=== PATIENT | female | born 1965 | race African-American/Black ===

== ENCOUNTER → 2017-01-07 | Outpatient (CLI) | payer MEDICARE, MEDICAID | LOC: RAD 13:06 | PROVIDERS: ATTEND Internal Medicine | DX: R09.1 Pleurisy (principal) | CPT/HCPCS: 71275; 82565 ==

== ENCOUNTER 2017-01-10 11:17 | Emergency (ER) | payer MEDICARE, MEDICAID ==
[2017-01-10] MEDS ORDERED: NORMAL SALINE 1000 ML 1,000 ML IV ONE (12:19)
--- NOTE | 2017-01-10 12:19 | ER Document Report ---
ED Medical Screen (RME) - General Chief Complaint: Chest Pain Stated Complaint: CHEST PAIN TRAVEL OUTSIDE OF THE [place] IN LAST 30 DAYS: No - HPI Patient complains to provider of: chest pain abdominal pain Notes: 01/10/17 12:17 Patient coming in with chest pain abdominal pain ongoing for greater than a week has been seen by her PCP Dr. De La Torre and cardiology Dr. portillo with a recent CTA that was negative coming in for persistent symptoms. States mild nausea vomiting Patient in no distress Patient looks to have been diagnosed pleurisy in the past - Related Data Allergies/Adverse Reactions: oxycodone HCl [From Percocet] Allergy (Severe, Verified 01/10/17 11:32) n and v Past Medical History - Past Medical History Cardiac Medical History: Reports: Hx Hypercholesterolemia, Hx Hypertension - on meds Denies: Hx Coronary Artery Disease, Hx Heart Attack Pulmonary Medical History: Reports: Hx Asthma - last attack 09/23, Hx COPD - on meds, Hx Pneumonia - hx of Denies: Hx Bronchitis Neurological Medical History: Denies: Hx Cerebrovascular Accident, Hx Seizures Renal/ Medical History: Denies: Hx Peritoneal Dialysis GI Medical History: Reports: Hx Gastroesophageal Reflux Disease Musculoskeltal Medical History: Reports Hx Arthritis Past Surgical History: Reports: Hx Section, Hx Cholecystectomy, Hx Hysterectomy, Hx Orthopedic Surgery - neck fusion, Hx Tonsillectomy - Immunizations Hx Diphtheria, Pertussis, Tetanus Vaccination: Yes - 2005 Review of Systems - Review of Systems Cardiovascular: Chest pain Physical Exam - Vital signs Vitals: Temp Pulse Resp BP Pulse Ox 97.6 F 96 15 91/53 L 97 01/10/17 11:35 01/10/17 11:35 01/10/17 11:35 01/10/17 11:35 01/10/17 11:35 - Cardiovascular Rhythm: Regular Heart sounds: Normal auscultation Course - Re-evaluation Re-evalutation: 01/10/17 12:19 EKG reviewed no signs of STEMI or acute changes - Vital Signs Vital signs: Temp Pulse Resp BP Pulse Ox 97.6 F 96 15 91/53 L 97 01/10/17 11:35 01/10/17 11:35 01/10/17 11:35 01/10/17 11:35 01/10/17 11:35
[2017-01-10 12:48] LABS: ABSOLUTE EOSINOPHILS # (AUTO) 0.1 10^3/uL (0.0-0.6); ABSOLUTE LYMPHOCYTES (AUTO) 2.5 10^3/uL (0.5-4.7); ABSOLUTE MONOCYTES (AUTO) 0.4 10^3/uL (0.1-1.4); ABSOLUTE NEUT (AUTO) 2.8 10^3/uL (1.7-8.2); BASOPHILS % (AUTO) 0.7 % (0-2); HEMATOCRIT 37.5 % (36.0-47.0); HEMOGLOBIN 12.7 g/dL (12.0-15.5); HGB HCT DIFFERENCE 0.6; LYMPHOCYTES % (AUTO) 42.3 % (13-45); MEAN CORPUSCULAR HEMOGLOBIN 30.5 pg (27.0-33.4); MEAN CORPUSCULAR HGB CONC 33.8 g/dL (32.0-36.0); MEAN CORPUSCULAR VOLUME 90 fl (80-97); MONOCYTES % (AUTO) 7.2 % (3-13); RED BLOOD COUNT 4.15 10^6/uL (3.72-5.28); SEGMENTED NEUTROPHILS % (AUTO) 47.8 % (42-78); WHITE BLOOD COUNT 5.9 10^3/uL (4.0-10.5)
--- NOTE | 2017-01-10 13:21 | ER Document Report ---
ED Cardiac - General Chief Complaint: Chest Pain Stated Complaint: CHEST PAIN Mode of Arrival: Ambulatory Information source: Patient Notes: Patient reports chest pain and upper back pain daily for the past year. Patient states she has seen her security infrastructure engineer, primary doctor as well as GI specialist for this issue in the past. Patient recently had a CTA on 2016 that was negative for any PE but did show stable scarring from her previous ARDS. Patient reports that over the past 3 weeks that she will have upper abdominal pain after eating and will occasionally feel lightheaded and get sweaty. Patient reports decreased appetite. Patient denies any change in her symptoms today but she feels that something is wrong. Patient reports that she saw her security infrastructure engineer physician's personal assistant 2 days ago so that she can get set up for a heart catheterization. Patient reports that she feels like her heart races at home, she states that when he races it is in the 90s. Patient states that typically her heart rate does not get that fast. TRAVEL OUTSIDE OF THE [place] IN LAST 30 DAYS: No - HPI Patient complains to provider of: Chest pain. denies: Shortness of breath Chest pain location: Substernal Quality of pain: denies: Tingling Pain level currently: 4 Cardiac risk factors: Hypertension, Dyslipidemia. denies: Smoker Associated symptoms: Back pain, Diaphoresis, Lightheaded. denies: Dizziness Exacerbated by: Other - Food Worsens abdominal pain Similar symptoms previously: Yes Recently seen / treated by doctor: Yes - Related Data Allergies/Adverse Reactions: oxycodone HCl [From Percocet] Allergy (Severe, Verified 01/10/17 11:32) n and v Past Medical History - General Information source: Patient - Social History Smoking Status: Never Smoker Frequency of alcohol use: None Drug Abuse: None Occupation: none Lives with: Family Family History: Reviewed & Not Pertinent Patient has suicidal ideation: No Patient has homicidal ideation: No - Past Medical History Cardiac Medical History: Reports: Hx Hypercholesterolemia, Hx Hypertension - on meds Denies: Hx Coronary Artery Disease, Hx Heart Attack Pulmonary Medical History: Reports: Hx Asthma - last attack 09/23, Hx COPD - on meds, Hx Pneumonia - hx of, Hx Intubation, Other - ARDS after upper respiratory infection while Denies: Hx Bronchitis Neurological Medical History: Reports: Hx Cerebrovascular Accident. Denies: Hx Seizures Renal/ Medical History: Denies: Hx Peritoneal Dialysis GI Medical History: Reports: Hx Gastroesophageal Reflux Disease Musculoskeltal Medical History: Reports Hx Arthritis Past Surgical History: Reports: Hx Section, Hx Cholecystectomy, Hx Hysterectomy, Hx Orthopedic Surgery - neck fusion, Hx Tonsillectomy - Immunizations Hx Diphtheria, Pertussis, Tetanus Vaccination: Yes - 2005 Hx Pneumococcal Vaccination: 10/11/10 Review of Systems - Review of Systems Constitutional: No symptoms reported. denies: Fever, Recent illness EENT: No symptoms reported Cardiovascular: Chest pain, Lightheaded Respiratory: No symptoms reported Gastrointestinal: Abdominal pain, Nausea. denies: Diarrhea, Vomiting Genitourinary: No symptoms reported. denies: Dysuria, Flank pain Female Genitourinary: No symptoms reported Musculoskeletal: Back pain Skin: No symptoms reported Hematologic/Lymphatic: No symptoms reported Neurological/Psychological: No symptoms reported Physical Exam - Vital signs Vitals: Temp Pulse Resp BP Pulse Ox 97.6 F 96 15 91/53 L 97 01/10/17 11:35 01/10/17 11:35 01/10/17 11:35 01/10/17 11:35 01/10/17 11:35 - General General appearance: Appears well, Alert In distress: None Notes: PHYSICAL EXAMINATION: GENERAL: Well-appearing and in no acute distress. HEAD: Atraumatic, normocephalic. EYES: sclera anicteric, conjunctiva are normal. ENT: nares patent. Moist mucous membranes. NECK: Normal range of motion, supple without lymphadenopathy, scar from previous intubation LUNGS: CTAB and equal. No wheezes rales or rhonchi. HEART: Regular rate and rhythm without murmurs ABDOMEN: Soft, nontender, normal bowel sounds, no guarding. EXTREMITIES: Normal range of motion, no pitting edema. No cyanosis. BACK: No midline tenderness, no step-off or deformity. No CVA tenderness NEUROLOGICAL: Cranial nerves grossly intact. Normal speech. Normal gait. PSYCH: Normal mood, normal affect. SKIN: Warm, Dry, normal turgor, no rashes or lesions noted Course - Re-evaluation Re-evalutation: 01/10/17 14:[address] Uriarte regarding patient presentation and diagnostic evaluation. Recommends having patient see Dr. tolliver tomorrow in the office for further evaluation. 01/10/17 17:17 Clearing Distribution Clerk at bedside for blood draw 01/10/17 18:[address] Tolliver regarding patient presentation and diagnostic test results. Advises have patient come to the office tomorrow and he will set her up for a Cardiac catheterization The patient has atypical chest pain as the patient's chest pain is not suggestive of pulmonary embolus, cardiac ischemia, aortic dissection, or other serious etiology. Given the extremely low risk of these diagnoses for the test in evaluation for these possibilities does not appear to be indicated at this time. Patient has been instructed to return if the symptoms worsen or change in any way. Heart score 2 - Vital Signs Vital signs: Temp Pulse Resp BP Pulse Ox 97.6 F 96 30 H 131/77 H 99 01/10/17 11:35 01/10/17 11:35 01/10/17 18:00 01/10/17 17:02 01/10/17 18:00 - Laboratory Result Diagrams: 01/10/17 12:25 01/10/17 12:25 Laboratory results interpreted by me: 01/10/17 12:30 Urine Blood SMALL H Ur Leukocyte Esterase SMALL H Labs- Entire Visit 01/10/17 01/10/17 01/10/17 12:25 12:25 12:25 WBC 5.9 RBC 4.15 Hgb 12.7 Hct 37.5 MCV 90 MCH 30.5 MCHC 33.8 RDW 13.0 Plt Count 364 Seg Neutrophils % 47.8 Lymphocytes % 42.3 Monocytes % 7.2 Eosinophils % 2.0 Basophils % 0.7 Absolute Neutrophils 2.8 Absolute Lymphocytes 2.5 Absolute Monocytes 0.4 Absolute Eosinophils 0.1 Absolute Basophils 0.0 Sodium 144.9 Potassium 4.4 Chloride 103 Carbon Dioxide 30 Anion Gap 12 BUN 20 Creatinine 0.81 Est GFR ( Amer) > 60 Est GFR (Non-Af Amer) > 60 Glucose 89 Calcium 10.0 Total Bilirubin 0.5 Direct Bilirubin 0.1 Indirect Bilirubin Not Reportable Neonat Total Bilirubin Not Reportable AST 21 ALT 24 Alkaline Phosphatase 101 Creatine Kinase 73 CK-MB (CK-2) 0.45 Troponin I < 0.012 Total Protein 7.3 Albumin 4.1 Lipase 27.0 Urine Color Urine Appearance Urine pH Ur Specific [place] Urine Protein Urine Glucose (UA) Urine Ketones Urine Blood Urine Nitrite Urine Bilirubin Urine Urobilinogen Ur Leukocyte Esterase Urine WBC (Auto) Urine RBC (Auto) Urine Bacteria (Auto) Squamous Epi Cells Auto Urine Mucus (Auto) Urine Ascorbic Acid Urine Opiates Screen Urine Methadone Screen Ur Barbiturates Screen Ur Phencyclidine Scrn Ur Amphetamines Screen U Benzodiazepines Scrn Urine Cocaine Screen U Marijuana (THC) Screen 01/10/17 01/10/17 01/10/17 12:30 12:30 17:19 WBC RBC Hgb Hct MCV MCH MCHC RDW Plt Count Seg Neutrophils % Lymphocytes % Monocytes % Eosinophils % Basophils % Absolute Neutrophils Absolute Lymphocytes Absolute Monocytes Absolute Eosinophils Absolute Basophils Sodium Potassium Chloride Carbon Dioxide Anion Gap BUN Creatinine Est GFR ( Amer) Est GFR (Non-Af Amer) Glucose Calcium Total Bilirubin Direct Bilirubin Indirect Bilirubin Neonat Total Bilirubin AST ALT Alkaline Phosphatase Creatine Kinase CK-MB (CK-2) Troponin I < 0.012 Total Protein Albumin Lipase Urine Color YELLOW Urine Appearance SLIGHTLY-CLOUDY Urine pH 5.0 Ur Specific [place] 1.030 Urine Protein NEGATIVE Urine Glucose (UA) NEGATIVE Urine Ketones NEGATIVE Urine Blood SMALL H Urine Nitrite NEGATIVE Urine Bilirubin NEGATIVE Urine Urobilinogen NEGATIVE Ur Leukocyte Esterase SMALL H Urine WBC (Auto) 7 Urine RBC (Auto) 6 Urine Bacteria (Auto) TRACE Squamous Epi Cells Auto 9 Urine Mucus (Auto) OCC Urine Ascorbic Acid NEGATIVE Urine Opiates Screen NEGATIVE Urine Methadone Screen NEGATIVE Ur Barbiturates Screen NEGATIVE Ur Phencyclidine Scrn NEGATIVE Ur Amphetamines Screen NEGATIVE U Benzodiazepines Scrn NEGATIVE Urine Cocaine Screen NEGATIVE U Marijuana (THC) Screen NEGATIVE - Diagnostic Test Radiology reviewed: Reports reviewed - EKG Interpretation by [facility] EKG shows normal: Sinus rhythm Discharge - Discharge Clinical Impression: Epigastric pain Chest pain Qualifiers: Chest pain type: unspecified Qualified Code(s): R07.9 - Chest pain, unspecified Back pain Qualifiers: Back pain location: thoracic back pain Chronicity: chronic Back pain laterality : bilateral Qualified Code(s): M54.6 - Pain in thoracic spine Condition: Stable Disposition: HOME, SELF-CARE Instructions: Abdominal Pain ([facility]), Chest Pain of Unclear Cause ([facility]), Reflux Disease (GERD) ([facility]) Additional Instructions: Return immediately for any new or worsening symptoms Followup with your primary care provider, call tomorrow to make a followup appointment Follow up with Dr. Tolliver in his office tomorrow morning for a recheck Prescriptions: Sucralfate [Carafate 1 gm Tablet] 1 gm PO ACHS #40 tablet Referrals: ALEXIS EDWARD MD [Primary Care Provider] - Follow up tomorrow SCARLETT TOLLIEVR MD [ACTIVE STAFF] - Follow up tomorrow
[2017-01-10 13:22] LABS: ALANINE AMINOTRANSFERASE 24 U/L (9-52); ALBUMIN 4.1 g/dL (3.5-5.0); ALKALINE PHOSPHATASE 101 U/L (38-126); ANION GAP 12 (5-19); ASPARTATE AMINO TRANSFERASE 21 U/L (14-36); BILIRUBIN,DIRECT 0.1 mg/dL (0.0-0.4); BILIRUBIN,TOTAL 0.5 mg/dL (0.2-1.3); BLOOD UREA NITROGEN 20 mg/dL (7-20); CARBON DIOXIDE 30 mmol/L (22-30); CHLORIDE 103 mmol/L (98-107); CREATINE KINASE 73 U/L (30-135); CREATININE RESULT 0.81 mg/dL (0.52-1.25); GLUCOSE 89 mg/dL (75-110); POTASSIUM 4.4 mmol/L (3.6-5.0); SODIUM 144.9 mmol/L (137-145); TOTAL PROTEIN 7.3 g/dL (6.3-8.2)
[2017-01-10 13:34] LABS: CREATINE KINASE MB 0.45 ng/mL (<4.55)
[2017-01-10 13:35] LABS: TROPONIN I < 0.012 ng/mL
[2017-01-10 14:02] LABS: APPEARANCE,URINE SLIGHTLY-CLOUDY; BILIRUBIN,URINE NEGATIVE (NEGATIVE); GLUCOSE, URINE NEGATIVE (NEGATIVE); KETONES,URINE NEGATIVE (NEGATIVE); LEUKOCYTE ESTERASE,URINE SMALL (NEGATIVE); NITRITE,URINE NEGATIVE (NEGATIVE); PROTEIN,URINE NEGATIVE (NEGATIVE); UROBILINOGEN,URINE NEGATIVE mg/dL (<2.0)
[2017-01-10 14:16] LABS: URINE BARBITURATES SCREEN NEGATIVE; URINE METHADONE SCREEN NEGATIVE; URINE OPIATES LOW NEGATIVE; URINE PHENCYCLIDINE SCREEN NEGATIVE
[2017-01-10 18:03] VITALS: BP 131/77
--- NOTE | 2017-01-10 21:11 | EKG REPORT ---
SEVERITY:- BORDERLINE ECG - SINUS RHYTHM PROBABLE LEFT ATRIAL ABNORMALITY : Confirmed by: Brigitte Pratt MD 10-Jan-2017 21:10:08
== END 2017-01-10 20:00 | disposition home or self-care (01) ==
LOC: ER 11:17
DX: R10.13 Epigastric pain (principal); R07.9 Chest pain, unspecified; M54.6 Pain in thoracic spine; R63.0 Anorexia
CPT/HCPCS: 93005; 99285; 36415; 87086; 82553; 82550; 83690; 85025; 80053; 81001; 84484; 80307; 71020; 93010; J7030

== ENCOUNTER → 2017-03-05 | Outpatient (CLI) | payer MEDICARE, MEDICAID ==
--- NOTE | 2017-03-05 16:20 | WOMENS IMAGING REPORT ---
EXAM DESCRIPTION: BILAT SCREENING MAMMO W/CAD COMPLETED DATE/TIME: 03/05/2017 3:37 pm REASON FOR STUDY: Z12.31, ROUTINE SCREENING MAMMO Z12.31 ENCNTR SCREEN MAMMOGRAM FOR MALIGNANT NEOP LASM OF [place] COMPARISON: Multiple since 2008 TECHNIQUE: Standard craniocaudal and mediolateral oblique views of each breast recorded using [employer] acquisition. LIMITATIONS: None. FINDINGS: Findings present which are benign by mammographic criteria. No suspicious masses, calcifi cations or architectural distortion. Pertinent benign findings: Benign arterial vascular calcifications Read with the assistance of CAD. .[facility] - R2 [employer] Version 1.3 .[facility] - R2 Cenova Version 1.3 .[facility] - R2 Cenova Version 2.4 .[facility] - R2 Cenova Version 2.4 .[facility] - R2 [employer] Version 9.2 Benign mammographic findings may include one or more of the following: Smooth masses, popcorn/rim/co arse calcifications, asymmetries, post-procedure changes, and lesions with long-standing stability. IMPRESSION: BENIGN MAMMOGRAPHIC FINDINGS. BIRADS 2 BREAST DENSITY: b. There are scattered areas of fibroglandular density. BIRAD: 2 BENIGN FINDING(S) RECOMMENDATION: ROUTINE SCREENING COMMENT: The patient has been notified of the results by letter per MQSA requirements. Additional no tification policies are in place for contacting patient with suspicious or incomplete findings. Quality ID #[id number]: The [employer] recommends an annual screening mammogram for women aged 40 years or over. This facility utilizes a reminder system to ensure that all patients receive reminder letters, and/or direct phone calls for appointments. This includes reminders for routine scr eening mammograms, diagnostic mammograms, or other Breast Imaging Interventions when appropriate. Th is patient will be placed in the appropriate reminder system. The [employer] (A[employer]) has developed recommendations for screening MRI of the breast s in certain patient populations, to be used in conjunction with mammography. Breast MRI surveillanc e may be appropriate for women with more than 20% lifetime risk of developing breast cancer as deter mined by genetic testing, significant family history of the disease, or history of mantle radiation f or Hodgkins Disease. ACR Practice Guidelines 2008. TECHNICAL DOCUMENTATION: FINDING NUMBER: (1) ASSESSMENT: (1) JOB ID: [id number] [employer]- All Rights Reserved
== END ==
LOC: WI 11:07
PROVIDERS: ATTEND Internal Medicine
DX: Z12.31 Encounter for screening mammogram for malignant neoplasm of breast (principal)
CPT/HCPCS: 77067; G0202

== ENCOUNTER 2017-04-27 23:21 | Emergency (ER) | payer MEDICARE, MEDICAID ==
--- NOTE | 2017-04-28 00:31 | RADIOLOGY REPORT (SQ) ---
EXAM DESCRIPTION: CHEST PA/LAT COMPLETED DATE/TIME: 04/28/2017 12:23 am REASON FOR STUDY: chest pain COMPARISON: 01/10/2017. EXAM PARAMETERS: NUMBER OF VIEWS: two views TECHNIQUE: Digital Frontal and Lateral radiographic views of the chest acquired. RADIATION DOSE: NA LIMITATIONS: none FINDINGS: LUNGS AND PLEURA: No opacities, masses or pneumothorax. No pleural effusion. MEDIASTINUM AND HILAR STRUCTURES: No masses or contour abnormalities. HEART AND VASCULAR STRUCTURES: Heart normal size. No evidence for failure. BONES: No acute findings. HARDWARE: Hardware in the cervical spine. OTHER: No other significant finding. IMPRESSION: NO SIGNIFICANT RADIOGRAPHIC FINDING IN THE CHEST. TECHNICAL DOCUMENTATION: JOB ID: [id number] [employer]- All Rights Reserved
[2017-04-28] MEDS ORDERED: DEXAMETHASONE SOD PHOS INJ 10 MG/1 ML VIAL IM ONE (03:11)
--- NOTE | 2017-04-28 03:13 | ER Document Report ---
ED Neck/Back Problem - General Chief Complaint: Back Pain Stated Complaint: BACK PAIN Time Seen by Provider: 04/28/17 02:16 Mode of Arrival: Ambulatory Information source: Patient Notes: Old female presented to ED for complaint of sharp back pain that started on Wednesday. She has a history of back pain. Woke up this morning with a new pain according to patient. She says it is hard to take a deep breath. She has been unable to sleep or rest comfortably. She has been seen previously and taken ibuprofen for this back pain. She saw Dr. Edward a couple days ago when he started on Percocet which she took but it has not helped with the pain. TRAVEL OUTSIDE OF THE [place] IN LAST 30 DAYS: No - HPI Patient complains to provider of: Pain, Upper back, Lower back Onset: Other - Wednesday Onset: Sudden Timing: Waxing and waning Quality of pain: Sharp, Stabbing Severity: Moderate Pain Level: 4 Recent injury: No Associated symptoms: Abdominal pain, Like prior neck/back pain, Lower back pain , Upper back pain. denies: Constipation, Incontinence, Numbness/tingling, Sensory loss, Unable to urinate Exacerbated by: Nothing Relieved by: Nothing Similar symptoms previously: Yes Recently seen / treated by doctor: Yes - Related Data Allergies/Adverse Reactions: oxycodone HCl [From Percocet] Allergy (Severe, Verified 01/10/17 11:32) n and v Past Medical History - General Information source: Patient - Social History Smoking Status: Never Smoker Cigarette use (# per day): No Chew tobacco use (# tins/day): No Smoking Education Provided: No Frequency of alcohol use: None Drug Abuse: None Occupation: none Lives with: Family Family History: Arthritis, CAD, CVA, DM, Hyperlipidemia, Hypertension, Malignancy, Thyroid Disfunction - Past Medical History Cardiac Medical History: Reports: Hx Hypercholesterolemia, Hx Hypertension - on meds Pulmonary Medical History: Reports: Hx Asthma - last attack 09/23, Hx COPD - on meds, Hx Pneumonia - hx of, Hx Intubation EENT Medical History: Reports: None Neurological Medical History: Reports: Hx Cerebrovascular Accident Endocrine Medical History: Reports: None Renal/ Medical History: Reports: None Malignancy Medical History: Reports: None GI Medical History: Reports: Hx Gastroesophageal Reflux Disease Musculoskeltal Medical History: Reports Hx Arthritis Skin Medical History: Reports None Psychiatric Medical History: Reports: None Traumatic Medical History: Reports: None Infectious Medical History: Reports: None Past Surgical History: Reports: Hx Section, Hx Cholecystectomy, Hx Hysterectomy, Hx Orthopedic Surgery - neck fusion, Hx Tonsillectomy - Immunizations Hx Diphtheria, Pertussis, Tetanus Vaccination: Yes - 2005 Hx Pneumococcal Vaccination: 10/11/10 Review of Systems - Review of Systems Constitutional: No symptoms reported EENT: No symptoms reported Cardiovascular: No symptoms reported Respiratory: Hurts to breathe - to take a deep breath Gastrointestinal: No symptoms reported Genitourinary: No symptoms reported Female Genitourinary: No symptoms reported Musculoskeletal: Back pain, Muscle pain, Muscle stiffness Skin: No symptoms reported Hematologic/Lymphatic: No symptoms reported Neurological/Psychological: No symptoms reported Physical Exam - Vital signs Vitals: Temp Pulse Resp BP Pulse Ox 97.9 F 82 16 143/88 H 100 04/27/17 23:40 04/27/17 23:40 04/27/17 23:40 04/27/17 23:40 04/27/17 23:40 Interpretation: Normal - General General appearance: Appears well, Alert - HEENT Head: Normocephalic, Atraumatic Eyes: Normal Pupils: PERRL - Respiratory Respiratory status: No respiratory distress. No: Respiratory distress, Tachypnea Chest status: Nontender, Pain with deep breathing Breath sounds: Normal Chest palpation: Normal - Cardiovascular Rhythm: Regular Heart sounds: Normal auscultation Murmur: No - Abdominal Inspection: Normal Distension: No distension Bowel sounds: Normal Tenderness: Nontender Organomegaly: No organomegaly - Back Back: Normal, Nontender - Extremities General upper extremity: Normal inspection, Nontender, Normal color, Normal ROM , Normal temperature General lower extremity: Normal inspection, Nontender, Normal color, Normal ROM , Normal temperature, Normal weight bearing. No: Chase's sign - Neurological Neuro grossly intact: Yes Cognition: Normal Orientation: AAOx4 Mason Coma Scale Eye Opening: Spontaneous Bondurant Coma Scale Verbal: Oriented Mason Coma Scale Motor: Obeys Commands Bondurant Coma Scale Total: 15 Speech: Normal Motor strength normal: LUE, RUE, LLE, RLE Sensory: Normal - Psychological Associated symptoms: Normal affect, Normal mood - Skin Skin Temperature: Warm Skin Moisture: Dry Skin Color: Normal Course - Re-evaluation Re-evalutation: 04/28/17 08:43 - Vital Signs Vital signs: Temp Pulse Resp BP Pulse Ox 98.3 F 71 16 117/88 H 100 04/28/17 03:32 04/28/17 03:32 04/27/17 23:40 04/28/17 03:32 04/28/17 03:32 - Diagnostic Test Radiology reviewed: Image reviewed, Reports reviewed Discharge - Discharge Clinical Impression: Back pain Qualifiers: Back pain location: low back pain Chronicity: unspecified Back pain laterality : bilateral Sciatica presence: with sciatica Sciatica laterality: bilateral sciatica Qualified Code(s): M54.42 - Lumbago with sciatica, left side Condition: Stable Disposition: HOME, SELF-CARE Instructions: Stretching Exercises for the Back ([facility]), Chronic Back Pain ([facility]) , Chronic Pain Control ([facility]) Additional Instructions: LOW BACK PAIN: Three out of every four people will have an episode of disabling back pain during their lifetime. Most commonly the pain is due to straining of the muscles and ligaments in the low back. Usual treatment includes: (1) Rest on a firm surface. Avoid lying on your stomach. (2) Ice pack the painful area. After a few days, gentle heat may be used intermittently to relax the area, or ice packs can be continued. (3) Medication may be needed -- muscle relaxers and antiinflammatory medicines are commonly used. (4) As the back improves, exercises are prescribed to strengthen the back and abdominal muscles. Your doctor will advise you on the proper care for your back at each stage in your recovery. You may be better in a few days -- or healing may take several weeks. If new symptoms of a "herniated disc" (radiation of pain, numbness, or tingling down the back of the leg or weakness in the leg) occur, you should be re-examined. Further testing may be necessary. Anti-Inflammatory Medication You have received a prescription for an antiinflammatory agent. This is an excellent, safe drug for pain control. In addition, it has potent antiinflammatory effects which are beneficial, especially in the treatment of injuries, arthritis, or tendonitis. It's best to take this medicine with food. Persons with ulcer disease or allergy to aspirin should notify their physician of this before taking this drug. Take the medication exactly as prescribed. Don't take additional doses unless instructed to do so by your doctor. If you develop wheezing, shortness of breath, hives, faintness, stomach pain, vomiting, or dark black stools, return for re-evaluation at once. ICE PACKS: Apply ice packs frequently against the painful area. Many different schedules are recommended, such as "20 minutes on, 20 minutes off" or "one hour ice, two hours rest." If you need to work, you may need to go longer between ice treatments. You should plan to have the area ice packed AT LEAST one fourth of the time. The ice should be applied over the wrap, tape, or splint, or over a layer of cloth -- not directly against the skin. Some ice bags have a built-in cloth and can be put directly on the skin. WARM PACKS: After approximately two days, apply gentle heat (such as a heating pad or hot water bottle) for about 20 to 30 minutes about every two hours -- at least four times daily. Warmth and elevation will help you make a more rapid recovery , and will ease the pain considerably. Do not use HOT heat, and never apply heat for longer than 30 minutes. The continuous heat can invisibly damage skin and muscles -- even when no burn is seen on the surface. Damaged muscles can make you MORE sore. STEROID MEDICATION: You have been given an injection of medicine of the cortisone/steroid class. This medication is used to control inflammation or allergy. It is often continued as a pill for a short period of time, until the acute process subsides. There are usually no side effects from short-term use of cortisone-like medications. Some persons feel an increased sense of well-being and are not sleepy at bedtime. Long-term use of cortisone medications is best avoided, unless required for a severe condition. If your condition does not remit, or relapses after the course of corticosteroid medication, you should consult your physician. FOLLOW-UP CARE: If you have been referred to a physician for follow-up care, call the physician s office for an appointment as you were instructed or within the next two days. If you experience worsening or a significant change in your symptoms, notify the physician immediately or return to the Emergency Department at any time for re-evaluation. Forms: Elevated Blood Pressure Referrals: ALEXIS EDWARD MD [Primary Care Provider] - Follow up as needed
[2017-04-28 03:33] VITALS: BP 117/88
== END 2017-04-28 03:32 | disposition home or self-care (01) ==
LOC: ER 23:21
DX: M54.42 Lumbago with sciatica, left side (principal); M54.41 Lumbago with sciatica, right side; M54.89 Other dorsalgia; R07.1 Chest pain on breathing; I10 Essential (primary) hypertension; J44.9 Chronic obstructive pulmonary disease, unspecified; Z86.73 Personal history of transient ischemic attack (TIA), and cerebral infarction without residual deficits; Z88.5 Allergy status to narcotic agent
CPT/HCPCS: 99283; 71020; J1100

== ENCOUNTER 2017-05-01 00:23 | Emergency (ER) | payer MEDICARE, MEDICAID ==
[2017-05-01 01:25] VITALS: BP 110/68
== END 2017-05-01 01:40 | disposition left against medical advice (07) ==
LOC: ER 00:23
DX: Z53.21 Procedure and treatment not carried out due to patient leaving prior to being seen by health care provider (principal)

== ENCOUNTER 2017-06-29 08:07 | Emergency (ER) | payer MEDICARE, MEDICAID ==
[2017-06-29] MEDS ORDERED: HYDROCODONE/ACETAMINOPHEN 5-325 MG TABLET PO ONE (08:51)
[2017-06-29] MEDS ORDERED: LIDOCAINE 5% (700 MG) TRANSDERMAL ADH..PATCH TP ONE (08:51)
--- NOTE | 2017-06-29 08:52 | ER Document Report ---
HPI - HPI Patient complains to provider of: Back pain Onset: Other - 8 days Onset/Duration: Persistent Quality of pain: Achy Pain Level: 4 Context: Patient presents complaining of low back pain for the past 8 days. Patient denies any fever injury. Patient states she has had low back pain in the past and this is in the same location as previous episodes of back pain. Associated Symptoms: Other - Low back pain. denies: Fever Exacerbated by: Movement, Walking Relieved by: Denies Similar symptoms previously: Yes Recently seen / treated by doctor: No - ROS ROS below otherwise negative: Yes Systems Reviewed and Negative: Yes All other systems reviewed and negative - CONSTITUTIONAL Constitutional: DENIES: Fever, Chills - NEURO Neurology: DENIES: Headache, Weakness - URINARY Notes: No urinary retention or incontinence - REPRODUCTIVE Reproductive: DENIES: : - MUSCULOSKELETAL Musculoskeletal: REPORTS: Back Pain. DENIES: Extremity pain, Neck Pain - DERM Skin Color: Normal Skin Problems: None Past Medical History - General Information source: Patient - Social History Smoking Status: Never Smoker Chew tobacco use (# tins/day): No Frequency of alcohol use: None Drug Abuse: None Occupation: None Lives with: Family Family History: Arthritis, CAD, CVA, DM, Hyperlipidemia, Hypertension, Malignancy, Thyroid Disfunction Patient has suicidal ideation: No Patient has homicidal ideation: No - Past Medical History Cardiac Medical History: Reports: Hx Hypercholesterolemia, Hx Hypertension - on meds Denies: Hx Coronary Artery Disease, Hx Heart Attack Pulmonary Medical History: Reports: Hx Asthma - last attack 09/23, Hx COPD - on meds, Hx Pneumonia - hx of, Hx Intubation Denies: Hx Bronchitis Neurological Medical History: Reports: Hx Cerebrovascular Accident. Denies: Hx Seizures Renal/ Medical History: Denies: Hx Peritoneal Dialysis GI Medical History: Reports: Hx Gastroesophageal Reflux Disease Musculoskeltal Medical History: Reports Hx Arthritis Past Surgical History: Reports: Hx Section, Hx Cholecystectomy, Hx Hysterectomy, Hx Orthopedic Surgery - neck fusion, Hx Tonsillectomy - Immunizations Hx Diphtheria, Pertussis, Tetanus Vaccination: Yes - 2005 Hx Pneumococcal Vaccination: 10/11/10 Vertical Provider Document - CONSTITUTIONAL Agree With Documented VS: Yes Exam Limitations: No Limitations General Appearance: WD/WN, No Apparent Distress Notes: PHYSICAL EXAMINATION: GENERAL: Well-appearing, well-nourished and in no acute distress. HEAD: Atraumatic, normocephalic. EYES: sclera clear, anicteric, conjunctiva are normal. ENT: nares patent, Moist mucous membranes. NECK: Normal range of motion, supple no lymphadenopathy LUNGS: respirations unlabored HEART: Regular rate and rhythm without murmurs EXTREMITIES: Normal range of motion, no pitting or edema. No cyanosis. Gait normal, pt ambulates without difficulty BACK: Lumbar paraspinal tenderness, no midline tenderness, no deformities or step-offs. No CVA tenderness. NEUROLOGICAL: Cranial nerves grossly intact. Normal speech, normal gait. No saddle anesthesia. 2+ bilateral patellar reflexes, negative straight leg test bilaterally PSYCH: Normal mood, normal affect. SKIN: Warm, Dry, normal turgor, no rashes or lesions noted. - INFECTION CONTROL TRAVEL OUTSIDE OF THE [place] IN LAST 30 DAYS: No - RESPIRATORY O2 Sat by Pulse Oximetry: 99 Course - Re-evaluation Re-evalutation: 06/29/17 18:18 The patient presents with low back pain without signs of spinal cord compression , cauda equina syndrome, infection, aneurysm, or other serious etiology. The patient is neurologically intact. Given the extremely risk of these diagnoses further testing and evaluation for these possibilities does not appear to be indicated at this time. Patient has been instructed to return if the symptoms worsen or change in any way. - Vital Signs Vital signs: Temp Pulse Resp BP Pulse Ox 97.6 F 90 18 114/73 99 06/29/17 08:10 06/29/17 08:10 06/29/17 08:10 06/29/17 08:10 06/29/17 08:10 - Diagnostic Test Radiology reviewed: Reports reviewed Discharge - Discharge Clinical Impression: Low back pain Qualifiers: Chronicity: unspecified Back pain laterality: bilateral Sciatica presence: without sciatica Qualified Code(s): M54.5 - Low back pain Condition: Stable Disposition: HOME, SELF-CARE Instructions: Ice Packs ([facility]), Low Back Pain ([facility]), Oral Narcotic Medication ( [facility]), Warm Packs ([facility]) Additional Instructions: Return immediately for any new or worsening symptoms Followup with your primary care provider, call tomorrow to make a followup appointment Prescriptions: Hydrocodone/Acetaminophen [[place] 5-325 Tablet] 1 each PO Q4 PRN #15 tablet PRN Reason: Referrals: ALEXIS EDWARD MD [Primary Care Provider] - Follow up tomorrow
--- NOTE | 2017-06-29 09:35 | RADIOLOGY REPORT (SQ) ---
EXAM DESCRIPTION: L SPINE WHOLE COMPLETED DATE/TIME: 06/29/2017 9:24 am REASON FOR STUDY: low back pain COMPARISON: 06/11/2012. NUMBER OF VIEWS: Five views including obliques. TECHNIQUE: AP, lateral, oblique, and sacral radiographic images acquired of the lumbar spine. LIMITATIONS: None. FINDINGS: MINERALIZATION: Normal. SEGMENTATION: Normal. No transitional anatomy. ALIGNMENT: Normal. VERTEBRAE: Maintained height. No fracture or worrisome bone lesion. DISCS: Preserved height. No significant osteophytes or end plate irregularity. POSTERIOR ELEMENTS: Pedicles and facets are intact. No pars defect or posterior arch defects. HARDWARE: None in the spine. PARASPINAL SOFT TISSUES: Normal. PELVIS: Intact as visualized. No fractures or worrisome bone lesions. SI joints intact. OTHER: No other significant finding. IMPRESSION: NORMAL 5 VIEW LUMBAR SPINE. TECHNICAL DOCUMENTATION: JOB ID: [id number]- All Rights Reserved
[2017-06-29 10:39] VITALS: BP 122/60
== END 2017-06-29 10:38 | disposition home or self-care (01) ==
LOC: ER 08:07
DX: M54.5 Low back pain (principal); E78.00 Pure hypercholesterolemia, unspecified; J44.9 Chronic obstructive pulmonary disease, unspecified; J45.909 Unspecified asthma, uncomplicated; Z86.73 Personal history of transient ischemic attack (TIA), and cerebral infarction without residual deficits; Z90.49 Acquired absence of other specified parts of digestive tract; Z90.710 Acquired absence of both cervix and uterus; Z98.1 Arthrodesis status
CPT/HCPCS: 99283; 72110; A9270

== ENCOUNTER 2017-06-29 16:58 | Observation (INO) | payer MEDICARE, MEDICAID ==
[2017-06-29] MEDS ORDERED: HYDROMORPHONE HCL INJ/PF 2 MG/ML AMPULE IV PRN (17:31)
[2017-06-29] MEDS: METHYLPREDNISOLONE INJ 125 MG/2 ML SDV IV SCH (18:02)
[2017-06-29 18:51] LABS: ANION GAP 9 (5-19); BLOOD UREA NITROGEN 21 mg/dL (7-20); CALCIUM 9.3 mg/dL (8.4-10.2); CARBON DIOXIDE 28 mmol/L (22-30); CHLORIDE 104 mmol/L (98-107); GLUCOSE 81 mg/dL (75-110); POTASSIUM 4.1 mmol/L (3.6-5.0); SODIUM 141.4 mmol/L (137-145)
[2017-06-29 18:54] LABS: HEMATOCRIT 33.6 % (36.0-47.0); HEMOGLOBIN 11.6 g/dL (12.0-15.5); HGB HCT DIFFERENCE 1.2; MEAN CORPUSCULAR HEMOGLOBIN 31.2 pg (27.0-33.4); MEAN CORPUSCULAR HGB CONC 34.4 g/dL (32.0-36.0); MEAN CORPUSCULAR VOLUME 91 fl (80-97); RED CELL DISTRIBUTION WIDTH 13.6 % (11.5-14.0); WHITE BLOOD COUNT 8.3 10^3/uL (4.0-10.5)
[2017-06-29 19:22] LABS: THYROID STIMULATING HORMONE 1.42 uIU/mL (0.47-4.68)
[2017-06-29] MEDS ORDERED: ONDANSETRON HCL INJ/PF 4 MG/2 ML SDV ONE (19:47)
[2017-06-29] MEDS ORDERED: ONDANSETRON HCL INJ/PF 4 MG/2 ML SDV IV PRN (21:15)
[2017-06-29] MEDS: LORAZEPAM INJ 2 MG/1 ML VIAL IV PRN (22:27)
[2017-06-30] MEDS: METHYLPREDNISOLONE INJ 125 MG/2 ML SDV IV SCH ×4 (00:18→18:33)
[2017-06-30] MEDS: LORAZEPAM INJ 2 MG/1 ML VIAL IV PRN ×3 (01:37→05:50)
--- NOTE | 2017-06-30 09:00 | RADIOLOGY REPORT (SQ) ---
EXAM DESCRIPTION: CHEST SINGLE VIEW COMPLETED DATE/TIME: 06/29/2017 7:15 pm REASON FOR STUDY: Admission-CAUDAEQUINA COMPARISON: 04/28/2017. NUMBER OF VIEWS: One view. TECHNIQUE: Single frontal radiographic view of the chest acquired. LIMITATIONS: None. FINDINGS: LUNGS AND PLEURA: Basilar areas of suspected scar. Similar appearance compared to prior. No nodules or masses sort overt consolidation. No evidence of failure. MEDIASTINUM AND HILAR STRUCTURES: No masses. Contour normal. HEART AND VASCULAR STRUCTURES: Heart normal in size. Normal vasculature. BONES: No acute findings. HARDWARE: None in the chest. OTHER: No other significant finding. IMPRESSION: Similar findings to prior, suspect basilar scarring. TECHNICAL DOCUMENTATION: JOB ID: [id number] [employer]- All Rights Reserved
[2017-06-30] MEDS ORDERED: KETOROLAC TROMETHAMINE INJ/PF 30 MG/1 ML SDV IV PRN (09:20)
--- NOTE | 2017-06-30 09:20 | RADIOLOGY REPORT (SQ) ---
EXAM DESCRIPTION: MRI LUMBAR SPINE WITHOUT COMPLETED DATE/TIME: 06/29/2017 8:24 pm REASON FOR STUDY: Cauda Equina G83.4 CAUDA EQUINA SYNDROME I10 ESSENTIAL (PRIMARY) HYPERTENSION COMPARISON: MRI lumbar spine 06/18/2011, 01/10/2009 TECHNIQUE: Sagittal and Axial imaging includes T1, T2, STIR and gradient echo sequences. Coronal T2/ HASTE imaging. LIMITATIONS: None. FINDINGS: VISUALIZED UPPER ABDOMEN: Limited evaluation. No acute or suspicious findings suggested. SEGMENTATION: No transitional anatomy. The lowest well-developed disc space is labeled L5-S1. ALIGNMENT: Anatomic. VERTEBRAE: Intact. BONE MARROW: Normal. No marrow replacement or reactive changes. DISC SIGNAL: Normal. No significant abnormal signal or loss of height. POSTERIOR ELEMENTS: Generally intact. No pars defect evident. HARDWARE: None in the spine. CORD AND CONUS: Normal in size and signal intensity. Conus at the L1 level. SOFT TISSUES: No aortic aneurysm seen. No bulky retroperitoneal adenopathy or mass. No paraspinal mas s or fluid. T11-12: At the upper edge of the field of view. Mild bilateral facet hypertrophy is present without central or foraminal encroachment. T12-L1: Mild bilateral facet hypertrophy is present without central or foraminal encroachment. L1-L2: No significant spinal stenosis or exit foraminal stenosis. L2-L3: No significant spinal stenosis or exit foraminal stenosis. L3-L4: No significant spinal stenosis or exit foraminal stenosis. Mild bilateral facet hypertrophy. L4-L5: Minimal posterior disc bulging and mild bilateral facet hypertrophy is present without central or foraminal encroachment. L5-S1: Minimal posterior disc bulging and mild bilateral facet hypertrophy is present without central or foraminal encroachment. LOWER THORACIC: Incompletely imaged. No stenosis seen. SACRUM: Visualized upper sacrum intact. OTHER: No other significant findings. IMPRESSION: Multilevel facet arthropathy. No high-grade central or foraminal encroachment TECHNICAL DOCUMENTATION: JOB ID: [id number]- All Rights Reserved
--- NOTE | 2017-06-30 16:08 | PDOC H&P ---
History of Present Illness Admission Date/PCP: 06/29/17 16:58 ALEXIS EDWARD MD History of Present Illness: RIMMA JESUS is a 52 year old female, she came to the office in a wheelchair for evaluation of severe back pain with radicular symptoms, inability to walk, she was literally yelling and weeping in the office, she was admitted directly from the office into the hospital for evaluation of her symptoms. A stat MRI of the lumbar spine was done he showed multilevel facet arthropathy but no high-grade central or foraminal encroachment. She was seen in the emergency room and in the day before she came to the office she was evaluated and discharged home on p.o. medications. Past Medical History Cardiac Medical History: Reports: Hyperlipidema, Hypertension - on meds Pulmonary Medical History: Reports: Asthma - last attack 09/23, Chronic Obstructive Pulmonary Disease (COPD) - on meds, Intubation, Pneumonia - hx of GI Medical History: Reports: Gastroesophageal Reflux Disease Musculoskeltal Medical History: Reports: Arthritis Past Surgical History Past Surgical History: Reports: Section, Cholecystectomy, Hysterectomy , Orthopedic Surgery - neck fusion, Tonsillectomy Social History Smoking Status: Never Smoker Frequency of Alcohol Use: None Hx Recreational Drug Use: No Drugs: None Hx Prescription Drug Abuse: No Family History Family History: Arthritis, CAD, CVA, DM, Hyperlipidemia, Hypertension, Malignancy, Thyroid Disfunction Parental Family History Reviewed: Yes Children Family History Reviewed: Yes Sibling(s) Family History Reviewed.: Yes Medication/Allergy Home Medications: Hydrocodone/Acetaminophen [[place] 5-325 mg Tablet] 1 tab PO Q4HP PRN 06/29/17 Ondansetron HCl [Zofran 4 mg Tablet] 4 mg PO Q8HP PRN 06/29/17 Zolpidem Tartrate [Ambien 5 mg Tablet] 5 mg PO HSP PRN 06/29/17 Ciprofloxacin HCl [Cipro 500 mg Tablet] 500 mg PO Q12 MDD started 06/24 for 7 days 06/30/17 Allergies/Adverse Reactions: oxycodone HCl [From Percocet] Allergy (Severe, Verified 06/29/17 08:10) n and v Review of Systems Constitutional: ABSENT: chills, fever(s), headache(s), weight gain, weight loss Eyes: ABSENT: visual disturbances Ears: ABSENT: hearing changes Cardiovascular: ABSENT: chest pain, dyspnea on exertion, edema, orthropnea, palpitations Respiratory: ABSENT: cough, hemoptysis Gastrointestinal: ABSENT: abdominal pain, constipation, diarrhea, hematemesis, hematochezia, nausea, vomiting Genitourinary: ABSENT: dysuria, hematuria Musculoskeletal: PRESENT: back pain Integumentary: ABSENT: rash, wounds Neurological: ABSENT: as per HPI, abnormal gait, abnormal movements, abnormal speech, confusion, convulsions, dizziness, focal weakness, frequent falls, lack of coordination, memory loss, numbness, paresthesias, restless legs, syncope, tingling, tremor(s), vertigo, weakness, other Psychiatric: PRESENT: anxiety Endocrine: ABSENT: cold intolerance, heat intolerance, menstrual abnormalities, polydipsia, polyuria Hematologic/Lymphatic: ABSENT: easy bleeding, easy bruising, lymphadenopathy Physical Exam Vital Signs: Temp Pulse Resp BP Pulse Ox 97.9 F 92 18 131/74 H 99 06/30/17 11:17 06/30/17 11:17 06/30/17 11:17 06/30/17 11:17 06/30/17 11:17 Intake & Output 06/29/17 06/30/17 07/01/17 06:59 06:59 06:59 Intake Total 450 541 Balance 450 541 Weight 78.2 kg General appearance: PRESENT: no acute distress, well-developed, well-nourished Head exam: PRESENT: atraumatic, normocephalic Eye exam: PRESENT: conjunctiva pink, EOMI, PERRLA Ear exam: PRESENT: normal external ear exam Mouth exam: PRESENT: moist, tongue midline Neck exam: PRESENT: full ROM Respiratory exam: PRESENT: clear to auscultation samanta Cardiovascular exam: PRESENT: RRR, +S1, +S2 Pulses: PRESENT: normal dorsalis pedis pul, +2 pedal pulses bilateral Vascular exam: PRESENT: normal capillary refill GI/Abdominal exam: PRESENT: normal bowel sounds, soft Rectal exam: PRESENT: deferred Musculoskeletal exam: PRESENT: tenderness, other - There is tenderness in the LS spine Neurological exam: PRESENT: alert, CN II-XII grossly intact Skin exam: PRESENT: dry, intact, warm Results Laboratory Results: 06/29/17 18:10 06/29/17 18:10 06/29/17 06/29/1717 18:10 18:10 18:10 WBC 8.3 RBC 3.70 L Hgb 11.6 L Hct 33.6 L MCV 91 MCH 31.2 MCHC 34.4 RDW 13.6 Plt Count 293 Sodium 141.4 Potassium 4.1 Chloride 104 Carbon Dioxide 28 Anion Gap 9 BUN 21 H Creatinine 0.80 Est GFR ( Amer) > 60 Est GFR (Non-Af Amer) > 60 Glucose 81 Calcium 9.3 TSH 1.42 Free T4 1.16 Impressions: Chest X-Ray 06/29/17 00:00 IMPRESSION: Similar findings to prior, suspect basilar scarring. Lumbar Spine MRI 06/29/17 00:00 IMPRESSION: Multilevel facet arthropathy. No high-grade central or foraminal encroachment Assessment & Plan - Diagnosis (1) Lumbar radiculopathy, acute Is this a current diagnosis for this admission?: Yes Plan: Patient is admitted for observation, she is started on IV Solu-Medrol, IV Toradol and Dilaudid
[2017-06-30 17:23] VITALS: BP 143/86
--- NOTE | 2017-06-30 18:41 | PDOC DISCHARGE SUMMARY ---
General - Admit/Disc Date/PCP Admission Date/Primary Care Provider: 06/29/17 16:58 ALEXIS EDWARD MD Discharge Date: 06/30/17 - Discharge Diagnosis (1) Lumbar radiculopathy, acute Is this a current diagnosis for this admission?: Yes - Additional Information Home Medications: Hydrocodone/Acetaminophen [[place] 5-325 mg Tablet] 1 tab PO Q4HP PRN 06/29/17 Ondansetron HCl [Zofran 4 mg Tablet] 4 mg PO Q8HP PRN 06/29/17 Zolpidem Tartrate [Ambien 5 mg Tablet] 5 mg PO HSP PRN 06/29/17 Ciprofloxacin HCl [Cipro 500 mg Tablet] 500 mg PO Q12 MDD started 06/24 for 7 days 06/30/17 History of Present Illness History of Present Illness: RIMMA JESUS is a 52 year old female, she came to the office in a wheelchair for evaluation of severe back pain with radicular symptoms, inability to walk, she was literally yelling and weeping in the office, she was admitted directly from the office into the hospital for evaluation of her symptoms. A stat MRI of the lumbar spine was done he showed multilevel facet arthropathy but no high-grade central or foraminal encroachment. She was seen in the emergency room and in the day before she came to the office she was evaluated and discharged home on p.o. medications. Hospital Course Hospital Course: Patient was admitted for observation and management of lumbar radiculopathy MRI of the LS spine was done, did not show any spinal cord compression or any major spinal stenosis. She was managed with IV Solu-Medrol and Toradol, she improved significantly on this regimen. Physical Exam Vital Signs: Temp Pulse Resp BP Pulse Ox 98.1 F 101 H 18 143/86 H 100 06/30/17 15:56 06/30/17 15:56 06/30/17 15:56 06/30/17 15:56 06/30/17 15:56 Intake & Output 06/29/17 06/30/17 07/01/17 06:59 06:59 06:59 Intake Total 450 541 Balance 450 541 Weight 78.2 kg General appearance: PRESENT: no acute distress, well-developed, well-nourished Head exam: PRESENT: atraumatic, normocephalic Eye exam: PRESENT: conjunctiva pink, EOMI, PERRLA Ear exam: PRESENT: normal external ear exam Mouth exam: PRESENT: moist, tongue midline Neck exam: PRESENT: full ROM Respiratory exam: PRESENT: clear to auscultation samanta Cardiovascular exam: PRESENT: RRR, +S1, +S2 Pulses: PRESENT: normal dorsalis pedis pul, +2 pedal pulses bilateral Vascular exam: PRESENT: normal capillary refill GI/Abdominal exam: PRESENT: normal bowel sounds, soft Rectal exam: PRESENT: deferred Neurological exam: PRESENT: alert, awake, oriented to person, oriented to place , oriented to time, oriented to situation, CN II-XII grossly intact Psychiatric exam: PRESENT: appropriate affect, normal mood Skin exam: PRESENT: dry, intact, warm Results Laboratory Results: 06/29/17 18:10 06/29/17 18:10 06/29/17 06/29/17 06/29/17 18:10 18:10 18:10 WBC 8.3 RBC 3.70 L Hgb 11.6 L Hct 33.6 L MCV 91 MCH 31.2 MCHC 34.4 RDW 13.6 Plt Count 293 Sodium 141.4 Potassium 4.1 Chloride 104 Carbon Dioxide 28 Anion Gap 9 BUN 21 H Creatinine 0.80 Est GFR ( Amer) > 60 Est GFR (Non-Af Amer) > 60 Glucose 81 Calcium 9.3 TSH 1.42 Free T4 1.16 Impressions: Chest X-Ray 06/29/17 00:00 IMPRESSION: Similar findings to prior, suspect basilar scarring. Lumbar Spine MRI 06/29/17 00:00 IMPRESSION: Multilevel facet arthropathy. No high-grade central or foraminal encroachment
== END 2017-06-30 20:00 | disposition home or self-care (01) ==
LOC: 4W 16:58
PROVIDERS: ADMIT Internal Medicine; ATTEND Internal Medicine
DX: M54.16 Radiculopathy, lumbar region (principal); F41.9 Anxiety disorder, unspecified; Z98.1 Arthrodesis status; J44.9 Chronic obstructive pulmonary disease, unspecified; I10 Essential (primary) hypertension; M19.90 Unspecified osteoarthritis, unspecified site; Z90.49 Acquired absence of other specified parts of digestive tract; Z82.61 Family history of arthritis
CPT/HCPCS: 99283; 36415; 84439; 84443; 85027; 80048; 72148; 71010; 72110; G0378 ×2; G0379; J2930 ×2; J1885; J1170; J2405 ×2; A9270

== ENCOUNTER 2017-08-08 19:20 | Emergency (ER) | payer MEDICARE, MEDICAID ==
[2017-08-08] MEDS ORDERED: DIPHENHYDRAMINE HCL 25 MG CAPSULE PO ONE (19:32)
[2017-08-08] MEDS ORDERED: DIPHENHYDRAMINE HCL 25 MG CAPSULE ONE (19:33)
[2017-08-08] MEDS ORDERED: METHYLPREDNISOLONE INJ 125 MG/2 ML SDV IM ONE (19:42)
[2017-08-08] MEDS ORDERED: DIPHENHYDRAMINE HCL 50 MG/ML VIAL IM ONE (19:42)
[2017-08-08] MEDS ORDERED: FAMOTIDINE 20 MG TABLET PO ONE (19:43)
--- NOTE | 2017-08-08 19:45 | ER Document Report ---
ED Allergic Reaction - General Chief Complaint: Allergic Reaction Stated Complaint: POSSIBLE RASH Time Seen by Provider: 08/08/17 19:42 Mode of Arrival: Ambulatory Information source: Patient TRAVEL OUTSIDE OF THE [place] IN LAST 30 DAYS: No - HPI Patient complains to provider of: Acute urticarial rash Onset: This evening Onset/Duration: Sudden Severity: Moderate Identified cause: Possibly Notes: Patient is a 52-year-old female presenting to the emergency room complaining of acute urticarial rash to bilateral upper extremities that started after eating at a hibachi place, she states she ate the same thing she always does at this place which is shrimp, broccoli and rice and dinner rolls, she has never had a reaction such as this before, no difficulty breathing or swallowing, no other substances that she may have come in contact with that may have triggered an allergy, no known allergies previous to today, she does list oxycodone as an allergy but reports it causes GI upset - Related Data Allergies/Adverse Reactions: oxycodone HCl [From Percocet] Allergy (Severe, Verified 08/08/17 19:42) n and v Past Medical History - General Information source: Patient - Social History Smoking Status: Unknown if Ever Smoked Family History: Arthritis, CAD, CVA, DM, Hyperlipidemia, Hypertension, Malignancy, Thyroid Disfunction Patient has suicidal ideation: No Patient has homicidal ideation: No - Past Medical History Cardiac Medical History: Reports: Hx Hypercholesterolemia, Hx Hypertension - on meds Pulmonary Medical History: Reports: Hx Asthma - last attack 09/23, Hx COPD - on meds, Hx Pneumonia - hx of, Hx Intubation Neurological Medical History: Reports: Hx Cerebrovascular Accident Renal/ Medical History: Denies: Hx Peritoneal Dialysis GI Medical History: Reports: Hx Gastroesophageal Reflux Disease Musculoskeltal Medical History: Reports Hx Arthritis Past Surgical History: Reports: Hx Section, Hx Cholecystectomy, Hx Hysterectomy, Hx Orthopedic Surgery - neck fusion, Hx Tonsillectomy - Immunizations Hx Diphtheria, Pertussis, Tetanus Vaccination: Yes - 2005 Hx Pneumococcal Vaccination: 10/11/10 Review of Systems - Review of Systems Constitutional: No symptoms reported EENT: No symptoms reported Cardiovascular: No symptoms reported Respiratory: No symptoms reported Gastrointestinal: No symptoms reported Genitourinary: No symptoms reported Female Genitourinary: No symptoms reported Musculoskeletal: No symptoms reported Skin: Rash Hematologic/Lymphatic: No symptoms reported Neurological/Psychological: No symptoms reported -: Yes All other systems reviewed and negative Physical Exam - Vital signs Vitals: Temp Pulse Resp BP Pulse Ox 97.6 F 93 16 129/77 H 100 08/08/17 19:27 08/08/17 19:27 08/08/17 19:27 08/08/17 19:27 08/08/17 19:27 Interpretation: Normal - General General appearance: Appears well, Alert - HEENT Head: Normocephalic, Atraumatic Eyes: Normal Pupils: PERRL - Respiratory Respiratory status: No respiratory distress Chest status: Nontender Breath sounds: Normal Chest palpation: Normal - Cardiovascular Rhythm: Regular Heart sounds: Normal auscultation Murmur: No - Abdominal Inspection: Normal Distension: No distension Bowel sounds: Normal Tenderness: Nontender Organomegaly: No organomegaly - Back Back: Normal, Nontender - Extremities General upper extremity: Normal inspection, Nontender, Normal color, Normal ROM , Normal temperature General lower extremity: Normal inspection, Nontender, Normal color, Normal ROM , Normal temperature, Normal weight bearing. No: Chase's sign - Neurological Neuro grossly intact: Yes Cognition: Normal Orientation: AAOx4 Mason Coma Scale Eye Opening: Spontaneous Mason Coma Scale Verbal: Oriented Mason Coma Scale Motor: Obeys Commands Mason Coma Scale Total: 15 Speech: Normal Motor strength normal: LUE, RUE, LLE, RLE Sensory: Normal - Psychological Associated symptoms: Normal affect, Normal mood - Skin Skin Temperature: Warm Skin Moisture: Dry Skin Color: Normal Location of irregularity: Extremities - Upper extremity Character of irregularity: Urticarial Course - Vital Signs Vital signs: Temp Pulse Resp BP Pulse Ox 97.6 F 93 16 129/77 H 100 08/08/17 19:27 08/08/17 19:27 08/08/17 19:27 08/08/17 19:27 08/08/17 19:27 Discharge - Discharge Clinical Impression: Urticarial rash Acute allergic reaction Qualifiers: Encounter type: initial encounter Qualified Code(s): T78.40XA - Allergy, unspecified, initial encounter Condition: Stable Disposition: HOME, SELF-CARE Instructions: Acute Urticaria ([facility]), Acute Allergic Reaction ([facility]) Additional Instructions: Follow up with your primary care provider in one to 2 days. Return to the emergency room immediately if symptoms worsen or any additional concerns. Prescriptions: Diphenhydramine HCl [Benadryl 25 Mg Capsule] 25 mg PO Q6 #30 capsule Famotidine [Pepcid 20 mg Tablet] 20 mg PO BID #12 tablet Prednisone 40 mg PO DAILY #8 tablet
[2017-08-08] MEDS ORDERED: EPINEPHRINE INJ/PF 1 MG/1 ML AMPULE ONE (19:55)
--- NOTE | 2017-08-08 19:58 | ER Document Report ---
ED General - General Chief Complaint: Allergic Reaction Stated Complaint: POSSIBLE RASH Time Seen by Provider: 08/08/17 19:42 Mode of Arrival: Ambulatory Notes: Patient is a 52-year-old female who presents with a diffuse urticarial rash that started approximately 30 minutes prior to arrival. Patient states that she ate at a [employer] restaurant tonight and had a dish that she typically has without any issues. Approximately 1 hour later while at her brother's house she developed a diffuse, pruritic, irritating rash over her chest, back, bilateral upper extremities and neck. She did not try anything for relief with her symptoms. Nothing seems to worsen or obviously trigger the symptoms. She has no history of similar symptoms in the past. She denies any difficulty breathing, vomiting, diarrhea, abdominal pain or syncope. She has not seen a primary doctor regarding today's concerns. TRAVEL OUTSIDE OF THE [place] IN LAST 30 DAYS: No - Related Data Allergies/Adverse Reactions: oxycodone HCl [From Percocet] Allergy (Severe, Verified 08/08/17 19:42) n and v Past Medical History - General Information source: Patient - Social History Smoking Status: Never Smoker Frequency of alcohol use: None Drug Abuse: None Lives with: Spouse/Significant other Family History: Arthritis, CAD, CVA, DM, Hyperlipidemia, Hypertension, Malignancy, Thyroid Disfunction Patient has suicidal ideation: No Patient has homicidal ideation: No - Past Medical History Cardiac Medical History: Reports: Hx Hypercholesterolemia, Hx Hypertension - on meds Pulmonary Medical History: Reports: Hx Asthma - last attack 09/23, Hx COPD - on meds, Hx Pneumonia - hx of, Hx Intubation Neurological Medical History: Reports: Hx Cerebrovascular Accident Renal/ Medical History: Denies: Hx Peritoneal Dialysis GI Medical History: Reports: Hx Gastroesophageal Reflux Disease Musculoskeltal Medical History: Reports Hx Arthritis Past Surgical History: Reports: Hx Section, Hx Cholecystectomy, Hx Hysterectomy, Hx Orthopedic Surgery - neck fusion, Hx Tonsillectomy - Immunizations Hx Diphtheria, Pertussis, Tetanus Vaccination: Yes - 2005 Hx Pneumococcal Vaccination: 10/11/10 Review of Systems - Review of Systems Notes: Constitutional: Negative for fever. HENT: Negative for sore throat. Eyes: Negative for visual changes. Cardiovascular: Negative for chest pain. Respiratory: Negative for shortness of breath. Gastrointestinal: Negative for abdominal pain, vomiting or diarrhea. Genitourinary: Negative for dysuria. Musculoskeletal: Negative for back pain. Skin: Positive for rash. Neurological: Negative for headaches, weakness or numbness. 10 point ROS negative except as marked above and in HPI. Physical Exam - Vital signs Vitals: Temp Pulse Resp BP Pulse Ox 97.6 F 93 16 129/77 H 100 08/08/17 19:27 08/08/17 19:27 08/08/17 19:27 08/08/17 19:27 08/08/17 19:27 Interpretation: Normal Notes: PHYSICAL EXAMINATION: GENERAL: Well-appearing, well-nourished and in no acute distress. HEAD: Atraumatic, normocephalic. EYES: Pupils equal round and reactive to light, extraocular movements intact, sclera anicteric, conjunctiva are normal. ENT: nares patent, oropharynx clear without exudates. Moist mucous membranes. NECK: Normal range of motion, supple without lymphadenopathy LUNGS: Breath sounds clear to auscultation bilaterally and equal. No wheezes rales or rhonchi. HEART: Regular rate and rhythm without murmurs ABDOMEN: Soft, nontender, normoactive bowel sounds. No guarding, no rebound. No masses appreciated. EXTREMITIES: Normal range of motion, no pitting or edema. No cyanosis. NEUROLOGICAL: No focal neurological deficits. Moves all extremities spontaneously and on command. PSYCH: Normal mood, normal affect. SKIN: Warm, Dry, normal turgor, diffuse urticarial lesions of the bilateral upper extremities, bilateral flanks and neck Course - Re-evaluation Re-evalutation: 08/08/17 19:57 Patient presents with acute onset of diffuse urticaria and lightheadedness approximately 30 minutes prior to arrival with an unclear trigger although possibly related to food ingestion at a restaurant although she has had the same food as the problems in the past. Patient does not have any stridor, wheezing or distress from a respiratory standpoint on presentation. However she is extremely pruritic, clearly miserable with discomfort. Will proceed with 0.5 mg of intramuscular epinephrine and placed in IV for administration of 125 mg of Solu-Medrol as well as Benadryl. I also want the IV in place should patient begin to clinically worsen. Patient did not eat any raw fish today, denies any pepper taste to the seafood that she did eat all of which was cooked thoroughly, and she did not develop any symptoms until 40 minutes after ingestion making acute scromboid unlikely. Will monitor closely. 08/08/17 21:01 Patient said resolution of her urticaria and states she feels much improved. Will send on a 5 day course of prednisone and recommend cetirizine. At this time will discharge with return precautions and follow-up recommendations. Verbal discharge instructions given a the bedside and opportunity for questions given. Medication warnings reviewed. Patient is in agreement with this plan and has verbalized understanding of return precautions and the need for primary care follow-up in the next 24-72 hours. - Vital Signs Vital signs: Temp Pulse Resp BP Pulse Ox 97.6 F 93 20 132/53 H 100 08/08/17 19:27 08/08/17 19:27 08/08/17 21:09 08/08/17 21:09 08/08/17 21:09 Discharge - Discharge Clinical Impression: Urticarial rash Acute allergic reaction Qualifiers: Encounter type: initial encounter Qualified Code(s): T78.40XA - Allergy, unspecified, initial encounter Condition: Good Disposition: HOME, SELF-CARE Additional Instructions: You were seen today for hives. This can be either allergic, autoimmune, or environmental in origin. You can continue to take cetirizine 10mg up to 3 times daily as needed for itching. Apply the topical steroid cream that has been prescribed as needed for severe inching. IF YOU DEVELOP DIFFICULTY BREATHING, SPREADING OF HIVES, VOMITING, LIGHTHEADEDNESS, IMMEDIATELY AND CALL 911. Please follow-up with your primary care physician in the next 1-2 days. Prescriptions: Diphenhydramine HCl [Benadryl 25 Mg Capsule] 25 mg PO Q6 #30 capsule Famotidine [Pepcid 20 mg Tablet] 20 mg PO BID #12 tablet Prednisone [Deltasone 20 mg Tablet] 3 tab PO DAILY 5 Days tablet Prednisone 40 mg PO DAILY #8 tablet Triamcinolone Acetonide 80 gm TP TID #80 cream.gm. Referrals: ALEXIS EDWARD MD [Primary Care Provider] - Follow up as needed
--- NOTE | 2017-08-08 20:09 | ER Document Report ---
ED Medical Screen (RME) - General Chief Complaint: Allergic Reaction Stated Complaint: POSSIBLE RASH Time Seen by Provider: 08/08/17 19:42 Mode of Arrival: Ambulatory Information source: Patient TRAVEL OUTSIDE OF THE [place] IN LAST 30 DAYS: No - HPI Patient complains to provider of: rash Onset: This evening Notes: 08/08/17 20:09 Patient is a 52-year-old female presenting to the emergency room complaining of acute urticarial rash to bilateral upper extremities that started after eating at a hibachi place, she states she ate the same thing she always does at this place which is shrimp, broccoli and rice and dinner rolls, she has never had a reaction such as this before, no difficulty breathing or swallowing, no other substances that she may have come in contact with that may have triggered an allergy, no known allergies previous to today, she does list oxycodone as an allergy but reports it causes GI upset - Related Data Allergies/Adverse Reactions: oxycodone HCl [From Percocet] Allergy (Severe, Verified 08/08/17 19:42) n and v Past Medical History - Past Medical History Cardiac Medical History: Reports: Hx Hypercholesterolemia, Hx Hypertension - on meds Pulmonary Medical History: Reports: Hx Asthma - last attack 09/23, Hx COPD - on meds, Hx Pneumonia - hx of, Hx Intubation Neurological Medical History: Reports: Hx Cerebrovascular Accident Renal/ Medical History: Denies: Hx Peritoneal Dialysis GI Medical History: Reports: Hx Gastroesophageal Reflux Disease Musculoskeltal Medical History: Reports Hx Arthritis Past Surgical History: Reports: Hx Section, Hx Cholecystectomy, Hx Hysterectomy, Hx Orthopedic Surgery - neck fusion, Hx Tonsillectomy - Immunizations Hx Diphtheria, Pertussis, Tetanus Vaccination: Yes - 2005 Physical Exam - Vital signs Vitals: Temp Pulse Resp BP Pulse Ox 97.6 F 93 16 129/77 H 100 08/08/17 19:27 08/08/17 19:27 08/08/17 19:27 08/08/17 19:27 08/08/17 19:27 Course - Vital Signs Vital signs: Temp Pulse Resp BP Pulse Ox 97.6 F 93 16 129/77 H 100 08/08/17 19:27 08/08/17 19:27 08/08/17 19:27 08/08/17 19:27 10/29/17 19:27 Doctor's Discharge - Discharge Clinical Impression: Urticarial rash Acute allergic reaction Qualifiers: Encounter type: initial encounter Qualified Code(s): T78.40XA - Allergy, unspecified, initial encounter Condition: Stable Disposition: HOME, SELF-CARE Instructions: Acute Allergic Reaction ([facility]), Acute Urticaria ([facility]) Additional Instructions: Follow up with your primary care provider in one to 2 days. Return to the emergency room immediately if symptoms worsen or any additional concerns. Prescriptions: Diphenhydramine HCl [Benadryl 25 Mg Capsule] 25 mg PO Q6 #30 capsule Famotidine [Pepcid 20 mg Tablet] 20 mg PO BID #12 tablet Prednisone 40 mg PO DAILY #8 tablet
[2017-08-08] MEDS ORDERED: EPINEPHRINE INJ/PF 1 MG/1 ML AMPULE IM ONE (20:17)
[2017-08-08 21:15] VITALS: BP 132/53
== END 2017-08-08 21:15 | disposition home or self-care (01) ==
LOC: ER 19:20
DX: L50.0 Allergic urticaria (principal); I10 Essential (primary) hypertension; J44.9 Chronic obstructive pulmonary disease, unspecified; Z88.5 Allergy status to narcotic agent
CPT/HCPCS: 99283; 96372; A9270 ×2; J1200; J0171; J2930

== ENCOUNTER 2017-10-22 14:47 | Emergency (ER) | payer MEDICARE ==
[2017-10-22] MEDS ORDERED: ASPIRIN 81 MG TABLET, CHEWABLE PO ONE (16:10)
--- NOTE | 2017-10-22 16:11 | ER Document Report ---
ED Medical Screen (RME) - General Chief Complaint: Chest Pain Stated Complaint: CHEST PAIN, DIFFICULTY BREATHING Time Seen by Provider: 10/22/17 16:05 Notes: 52-year-old female here with complaints of dry cough shortness of breath and chest pain worse with exertion ongoing for the past few days. She has tried using her inhaler with minimal relief. She has a history of acute respiratory distress syndrome in 1998 and states that ever since then her lungs have given her problems. She denies any cardiac stents. She states that, at times, it can be normal for her heart rate to be slightly elevated and her doctor has put her on medicine for this. EXAM Clear to auscultation bilaterally Mildly tachycardic TRAVEL OUTSIDE OF THE [place] IN LAST 30 DAYS: No - Related Data Allergies/Adverse Reactions: oxycodone HCl [From Percocet] Allergy (Severe, Verified 10/22/17 14:48) n and v Past Medical History - Social History Chew tobacco use (# tins/day): No Frequency of alcohol use: None Drug Abuse: None - Past Medical History Cardiac Medical History: Reports: Hx Hypercholesterolemia, Hx Hypertension - on meds Pulmonary Medical History: Reports: Hx Asthma - last attack 09/23, Hx COPD - on meds, Hx Pneumonia - hx of, Hx Intubation Neurological Medical History: Reports: Hx Cerebrovascular Accident Renal/ Medical History: Denies: Hx Peritoneal Dialysis GI Medical History: Reports: Hx Gastroesophageal Reflux Disease Musculoskeltal Medical History: Reports Hx Arthritis Past Surgical History: Reports: Hx Section, Hx Cholecystectomy, Hx Hysterectomy, Hx Orthopedic Surgery - neck fusion, Hx Tonsillectomy - Immunizations Hx Diphtheria, Pertussis, Tetanus Vaccination: Yes - 2005 History of Influenza Vaccine for 07/2017 - 12/2017 Season: No Physical Exam - Vital signs Vitals: Temp Pulse Resp BP Pulse Ox 98.5 F 99 16 123/64 98 10/22/17 15:06 10/22/17 15:06 10/22/17 15:06 10/22/17 15:06 10/22/17 15:06 Course - Vital Signs Vital signs: Temp Pulse Resp BP Pulse Ox 98.5 F 99 16 123/64 98 10/22/17 15:06 10/22/17 15:06 10/22/17 15:06 10/22/17 15:06 10/22/17 15:06
[2017-10-22 16:33] LABS: ABSOLUTE BASOPHILS # (AUTO) 0.1 10^3/uL (0.0-0.2); ABSOLUTE EOSINOPHILS # (AUTO) 0.3 10^3/uL (0.0-0.6); ABSOLUTE LYMPHOCYTES (AUTO) 3.9 10^3/uL (0.5-4.7); ABSOLUTE MONOCYTES (AUTO) 0.7 10^3/uL (0.1-1.4); ABSOLUTE NEUT (AUTO) 5.6 10^3/uL (1.7-8.2); BASOPHILS % (AUTO) 0.6 % (0-2); EOSINOPHILS % (AUTO) 2.5 % (0-6); HEMATOCRIT 38.7 % (36.0-47.0); HEMOGLOBIN 12.7 g/dL (12.0-15.5); MEAN CORPUSCULAR HEMOGLOBIN 30.3 pg (27.0-33.4); MEAN CORPUSCULAR HGB CONC 32.8 g/dL (32.0-36.0); MEAN CORPUSCULAR VOLUME 93 fl (80-97); MONOCYTES % (AUTO) 6.6 % (3-13); PLATELET COUNT 407 10^3/uL (150-450); RED BLOOD COUNT 4.18 10^6/uL (3.72-5.28); RED CELL DISTRIBUTION WIDTH 13.6 % (11.5-14.0); SEGMENTED NEUTROPHILS % (AUTO) 53.3 % (42-78); TOTAL CELLS COUNTED % (AUTO) 100 %; WHITE BLOOD COUNT 10.4 10^3/uL (4.0-10.5)
[2017-10-22 16:53] LABS: ANION GAP 9 (5-19); BLOOD UREA NITROGEN 22 mg/dL (7-20); CALCIUM 9.7 mg/dL (8.4-10.2); CARBON DIOXIDE 33 mmol/L (22-30); CHLORIDE 102 mmol/L (98-107); GLUCOSE 89 mg/dL (75-110); POTASSIUM 4.2 mmol/L (3.6-5.0); SODIUM 143.5 mmol/L (137-145)
--- NOTE | 2017-10-22 16:54 | RADIOLOGY REPORT (SQ) ---
EXAM DESCRIPTION: CHEST PA/LAT COMPLETED DATE/TIME: 10/22/2017 4:45 pm REASON FOR STUDY: CP SOB cough COMPARISON: 04/28/2017. EXAM PARAMETERS: NUMBER OF VIEWS: two views TECHNIQUE: Digital Frontal and Lateral radiographic views of the chest acquired. RADIATION DOSE: NA LIMITATIONS: none FINDINGS: LUNGS AND PLEURA: No opacities, masses or pneumothorax. No pleural effusion. MEDIASTINUM AND HILAR STRUCTURES: No masses or contour abnormalities. HEART AND VASCULAR STRUCTURES: Heart normal size. No evidence for failure. BONES: No acute findings. HARDWARE: Clips in the upper abdomen. OTHER: No other significant finding. IMPRESSION: NO SIGNIFICANT RADIOGRAPHIC FINDING IN THE CHEST. TECHNICAL DOCUMENTATION: JOB ID: [id number] [employer]- All Rights Reserved
[2017-10-22 17:06] LABS: NT PRO BNP < 11 pg/mL (5-900); TROPONIN I < 0.012 ng/mL
--- NOTE | 2017-10-22 18:19 | EKG REPORT ---
SEVERITY:- BORDERLINE ECG - SINUS RHYTHM PROBABLE LEFT ATRIAL ABNORMALITY : Confirmed by: Lupillo Bang MD 22-Oct-2017 18:18:35
--- NOTE | 2017-10-22 20:28 | ER Document Report ---
ED General - General Chief Complaint: Chest Pain Stated Complaint: CHEST PAIN, DIFFICULTY BREATHING Time Seen by Provider: 10/22/17 16:05 TRAVEL OUTSIDE OF THE [place] IN LAST 30 DAYS: No - HPI Notes: Patient is a 52-year-old female with a history of ARS who presents to the ED complaining of nasal congestion/discharge, dry nonproductive cough, occ body ache 2 days. Patient states that she chronically have intermittent chest pain , but has not had any recently. Patient states that she has been using her inhaler at home as directed as well as just finishing up a prednisone taper. Patient states that due to her lung conditions, she is unable to expel mucus. Patient was hospitalized for 6 months in the past because of her lungs and has scarring bilaterally. Patient states that when her colds get worse she usually gets seen again antibiotic. Patient states that she is ambulatory without any dyspnea on exertion. Patient denies any prolonged immobilization, recent surgery/trauma, previous DVT/PE, smoking, hormone replacement, or any significant cardiac history otherwise. Denies any headache, fever, neck pain, sore throat, chest pain, palpitations, syncope, shortness of breath, dyspnea, abdominal pain, nausea/vomiting/diarrhea, urinary retention, dysuria, hematuria , loss of control of bowel or bladder, numbness/tingling, muscle paralysis/ weakness, or rash. I did ask her about the chest pain with exertion in the RME note, but pt states that she will have that intermittently on a normal basis, but has not had any over the last 2 days that she sees as "out of the ordinary." - Related Data Allergies/Adverse Reactions: oxycodone HCl [From Percocet] Allergy (Severe, Verified 10/22/17 14:48) n and v Past Medical History - Social History Smoking Status: Never Smoker Chew tobacco use (# tins/day): No Frequency of alcohol use: None Drug Abuse: None Family History: Arthritis, CAD, CVA, DM, Hyperlipidemia, Hypertension, Malignancy, Thyroid Disfunction Patient has suicidal ideation: No Patient has homicidal ideation: No - Past Medical History Cardiac Medical History: Reports: Hx Hypercholesterolemia, Hx Hypertension - on meds Pulmonary Medical History: Reports: Hx Asthma - last attack 09/23, Hx COPD - on meds, Hx Pneumonia - hx of, Hx Intubation Neurological Medical History: Reports: Hx Cerebrovascular Accident Renal/ Medical History: Denies: Hx Peritoneal Dialysis GI Medical History: Reports: Hx Gastroesophageal Reflux Disease Musculoskeltal Medical History: Reports Hx Arthritis Past Surgical History: Reports: Hx Section, Hx Cholecystectomy, Hx Hysterectomy, Hx Orthopedic Surgery - neck fusion, Hx Tonsillectomy - Immunizations Hx Diphtheria, Pertussis, Tetanus Vaccination: Yes - 2005 Hx Pneumococcal Vaccination: 10/11/10 Review of Systems - Review of Systems Notes: REVIEW OF SYSTEMS: CONSTITUTIONAL : Denies fever, chills, or sweats. Denies recent illness. EENT: Denies eye, ear, throat, or mouth pain or symptoms. Denies nasal or sinus congestion or discharge. Denies throat, tongue, or mouth swelling or difficulty swallowing. CARDIOVASCULAR: see hpi. Denies chest pain. Denies palpitations or racing or irregular heart beat. Denies ankle edema. RESPIRATORY: see hpi GASTROINTESTINAL: Denies abdominal pain or distention. Denies nausea, vomiting , or diarrhea. Denies blood in vomitus, stools, or per rectum. Denies black, tarry stools. Denies constipation. GENITOURINARY: Denies difficulty urinating, painful urination, burning, frequency, blood in urine, or discharge. MUSCULOSKELETAL: Denies back or neck pain or stiffness. Denies joint pain or swelling. SKIN: Denies rash, lesions or sores. NEUROLOGICAL: Denies confusion or altered mental status. Denies passing out or loss of consciousness. Denies dizziness or lightheadedness. Denies headache. Denies weakness or paralysis or loss of use of either side. Denies problems with gait or speech. Denies sensory loss, numbness, or tingling. Denies seizures. ALL OTHER SYSTEMS REVIEWED AND NEGATIVE. Dictation was performed using [employer] voice recognition software Physical Exam - Vital signs Vitals: Temp Pulse Resp BP Pulse Ox 98.5 F 99 16 123/64 98 10/22/17 15:06 10/22/17 15:06 10/22/17 15:06 10/22/17 15:06 10/22/17 15:06 Notes: PHYSICAL EXAMINATION: GENERAL: Well-appearing, well-nourished and in no acute distress. HEAD: Atraumatic, normocephalic. EYES: Pupils equal round and reactive to light, extraocular movements intact, sclera anicteric, conjunctiva are normal. ENT: EAC clear b/l. TM's intact b/l without erythema, fluid, or perforation. Nares patent and with clear discharge. oropharynx clear without exudates. No tonsilar hypertrophy or erythema. Moist mucous membranes. No sinus tenderness. NECK: Normal range of motion, supple without lymphadenopathy LUNGS: Breath sounds clear to auscultation bilaterally and equal. No wheezes rales or rhonchi. HEART: Regular rate and rhythm without murmurs, rubs, gallops. ABDOMEN: Soft, nontender, nondistended abdomen. No guarding, no rebound. No masses appreciated. Normal bowel sounds present. No CVA tenderness bilaterally. Musculoskeletal: FROM to passive/active. Strength 5+/5. Chase neg. No calf erythema or swelling. Extremities: No cyanosis, clubbing, or edema b/l. Peripheral pulses 2+. Capillary refill less than 3 seconds. NEUROLOGICAL: Normal speech, normal gait. Normal sensory, motor exams PSYCH: Normal mood, normal affect. SKIN: Warm, Dry, normal turgor, no rashes or lesions noted. Course - Re-evaluation Re-evalutation: 10/22/17 21:35 Patient is an afebrile, well-hydrated, 52-year-old female who presents the ED with acute URI. Vitals are stable. PE is otherwise unremarkable. Due to the patient's history of ARDS and issues with her lungs, I will send her home with a prescription for Zithromax. CBC, CMP, cardiac enzymes 2, d-dimer, chest x- ray were unremarkable for any acute pathology. Patient is currently asymptomatic for any chest pain or shortness of breath. Patient has a heart score of 1. PERC 0. Well's 0. Low suspicion for any ACS, PE, pneumothorax, pericarditis, dissection, respiratory compromise, severe dehydration, sepsis, meningitis, or other systemic emergent condition at this time. Patient is aware that her condition can change from initial presentation and she needs to monitor symptoms closely and seek medical attention for any acute changes. Recommend conservative measures for symptoms. Recheck with your PCM in 3-5 days. Return to the ED with any worsening/concerning symptoms otherwise as reviewed in discharge. Patient is in agreement. - Vital Signs Vital signs: Temp Pulse Resp BP Pulse Ox 98.4 F 99 18 106/73 100 10/22/17 19:30 10/22/17 15:06 10/22/17 20:01 10/22/17 20:01 10/22/17 20:00 - Laboratory Result Diagrams: 10/22/17 16:16 10/22/17 16:16 Laboratory results interpreted by me: 10/22/17 16:16 Carbon Dioxide 33 H BUN 22 H Discharge - Discharge Clinical Impression: Acute URI Condition: Stable Disposition: HOME, SELF-CARE Instructions: Upper Respiratory Illness ([facility]), Bronchitis ([facility]) Additional Instructions: Maintain adequate fluid intake Take meds as directed tylenol/ibuprofen as needed over the counter cold medication as needed for symptoms Humidified air may help F/u: with your PCM in 3-5 days for a recheck Return to the ED with any fever, worsening pain, chest pain, palpitations, syncope, worsening TELLO, neck pain/stiffness, shortness of breath, wheezing, drooling, trouble swallowing/breathing, abdominal pain, n/v/d, rash, or worsening/concerning symptoms otherwise. Prescriptions: Azithromycin [Zithromax 250 mg Tablet] 250 mg PO ASDIR PRN #6 tablet PRN Reason: Referrals: CHETNA ESPINOSA MD [ACTIVE STAFF] - Follow up as needed
[2017-10-22 21:58] VITALS: BP 114/72
== END 2017-10-22 21:50 | disposition home or self-care (01) ==
LOC: ER 14:47
DX: J06.9 Acute upper respiratory infection, unspecified (principal); R07.9 Chest pain, unspecified; R06.02 Shortness of breath; R09.81 Nasal congestion; R09.89 Other specified symptoms and signs involving the circulatory and respiratory systems; R05 Cough; M79.1 Myalgia
CPT/HCPCS: 93005; 99285; 36415; 85025; 80048; 84484; 85379; 83880; 71046; 93010; A9270

== ENCOUNTER 2017-10-30 19:58 | Emergency (ER) | payer MEDICARE ==
--- NOTE | 2017-10-30 22:00 | RADIOLOGY REPORT (SQ) ---
EXAM DESCRIPTION: CHEST PA/LAT COMPLETED DATE/TIME: 10/30/2017 9:23 pm REASON FOR STUDY: shortness of breath COMPARISON: 10/22/2017 EXAM PARAMETERS: NUMBER OF VIEWS: two views TECHNIQUE: Digital Frontal and Lateral radiographic views of the chest acquired. RADIATION DOSE: NA LIMITATIONS: none FINDINGS: LUNGS AND PLEURA: No opacities, masses or pneumothorax. No pleural effusion. MEDIASTINUM AND HILAR STRUCTURES: No masses or contour abnormalities. HEART AND VASCULAR STRUCTURES: Heart normal size. No evidence for failure. BONES: No acute findings. HARDWARE: None in the chest. OTHER: No other significant finding. IMPRESSION: NO SIGNIFICANT RADIOGRAPHIC FINDING IN THE CHEST. TECHNICAL DOCUMENTATION: JOB ID: [id number] [employer]- All Rights Reserved
--- NOTE | 2017-10-30 22:13 | EKG REPORT ---
SEVERITY:- NORMAL ECG - SINUS RHYTHM : Confirmed by: Dean Tolliver 30-Oct-2017 22:13:13
--- NOTE | 2017-10-31 00:07 | ER Document Report ---
ED Respiratory Problem - General Chief Complaint: Shortness Of Breath Stated Complaint: CHEST PAIN,UPPER BACK PAIN Time Seen by Provider: 10/30/17 23:48 Notes: Patient is a 52-year-old female that comes emergency department for chief complaint of shortness of breath and intermittent discomfort in her chest mainly with taking deep breaths. She also states that she feels that pain in the top of her left upper back occasionally as well. She states that she just got over an upper respiratory infection, just completed azithromycin, previously completed prednisone, states that her cough and congestion symptoms are gone although she feels like there might be congestion sitting in her chest that she cannot get out. She states that when ever she tries to walk any distance she becomes out of breath almost immediately. She denies having chest pain when doing this but if she breathes heavily she feels discomfort which is mild. Symptoms have been the same since yesterday. Past medical history of hypertension, reports she once had ARDS with intubation and is now treated for COPD with unspecified lung condition (never smoked). Reports family history of blood clots but denies personal history of blood clots, recent travel, recent surgery, lower extremity swelling. TRAVEL OUTSIDE OF THE [place] IN LAST 30 DAYS: No - Related Data Allergies/Adverse Reactions: oxycodone HCl [From Percocet] Allergy (Severe, Verified 10/22/17 14:48) n and v Past Medical History - General Information source: Patient - Social History Smoking Status: Never Smoker Frequency of alcohol use: None Drug Abuse: None Lives with: Family Family History: Arthritis, CAD, CVA, DM, Hyperlipidemia, Hypertension, Malignancy, Thyroid Disfunction - Past Medical History Cardiac Medical History: Reports: Hx Hypercholesterolemia, Hx Hypertension - on meds Pulmonary Medical History: Reports: Hx Asthma - last attack 09/23, Hx COPD - on meds, Hx Pneumonia - hx of, Hx Intubation Neurological Medical History: Reports: Hx Cerebrovascular Accident Renal/ Medical History: Denies: Hx Peritoneal Dialysis GI Medical History: Reports: Hx Gastroesophageal Reflux Disease Musculoskeltal Medical History: Reports Hx Arthritis Past Surgical History: Reports: Hx Section, Hx Cholecystectomy, Hx Hysterectomy, Hx Orthopedic Surgery - neck fusion, Hx Tonsillectomy - Immunizations Hx Diphtheria, Pertussis, Tetanus Vaccination: Yes - 2005 Hx Pneumococcal Vaccination: 10/11/10 Review of Systems - Review of Systems Constitutional: No symptoms reported EENT: No symptoms reported Cardiovascular: See HPI Respiratory: See HPI Gastrointestinal: No symptoms reported Genitourinary: No symptoms reported Female Genitourinary: No symptoms reported Musculoskeletal: No symptoms reported Skin: No symptoms reported Hematologic/Lymphatic: No symptoms reported Neurological/Psychological: No symptoms reported Physical Exam - Vital signs Vitals: Temp Pulse Resp BP Pulse Ox 98.2 F 94 14 139/88 H 100 10/30/17 20:42 10/30/17 20:42 10/30/17 20:42 10/30/17 20:42 10/30/17 20:42 Interpretation: Normal - General General appearance: Appears well, Alert In distress: None - HEENT Head: Normocephalic, Atraumatic Eyes: Normal Pupils: PERRL - Respiratory Respiratory status: No respiratory distress. No: Labored, Tachypnea Chest status: Nontender Breath sounds: Normal. No: Decreased air movement, Wheezing Chest palpation: Normal - Cardiovascular Rhythm: Regular Heart sounds: Normal auscultation Murmur: No - Abdominal Inspection: Normal Distension: No distension Bowel sounds: Normal Tenderness: Nontender Organomegaly: No organomegaly - Back Back: Normal, Nontender - Extremities General upper extremity: Normal inspection, Nontender, Normal color, Normal ROM , Normal temperature General lower extremity: Normal inspection, Nontender, Normal color, Normal ROM , Normal temperature, Normal weight bearing. No: Chase's sign - Neurological Neuro grossly intact: Yes Cognition: Normal Orientation: AAOx4 Patton Coma Scale Eye Opening: Spontaneous [place] Coma Scale Verbal: Oriented [place] Coma Scale Motor: Obeys Commands Pat[place] Coma Scale Total: 15 Speech: Normal Motor strength normal: LUE, RUE, LLE, RLE Sensory: Normal - Psychological Associated symptoms: Normal affect, Normal mood - Skin Skin Temperature: Warm Skin Moisture: Dry Skin Color: Normal Course - Re-evaluation Re-evalutation: CBC, chemistry, troponin, BNP all unremarkable. Chest x-ray unremarkable. EKG with no significant change from prior. Patient is well-appearing on exam, does not have tachypnea, tachycardia, hypoxia. She insists that she feels like she cannot breathe take she used to be able to when she walks, she does not know a specific lung diagnosis, she requests CAT scan to be performed after discussion of results. She states she has family history of blood clots and she wants to be checked. CT was performed, shows no pulmonary emboli, dissection, infiltrate, or vascular congestion. It does show pulmonary fibrosis. Discussed this with patient, provided her with a copy of her CAT scan, disc, and instructed her to follow-up with pulmonology which she already has arranged. Discussed return precautions in detail. Patient has not had any chest pain, low suspicion of ACS. Patient states satisfaction and agreement with plan. - Vital Signs Vital signs: Temp Pulse Resp BP Pulse Ox 98.2 F 94 21 H 110/77 97 10/30/17 20:42 10/30/17 20:42 10/31/17 00:01 10/31/17 00:01 10/31/17 00:01 - Laboratory Result Diagrams: 10/31/17 00:55 10/31/17 00:55 Laboratory results interpreted by me: 10/31/17 10/31/17 00:55 00:55 Hct 35.9 L BUN 21 H Discharge - Discharge Clinical Impression: Shortness of breath Condition: Stable Disposition: HOME, SELF-CARE Additional Instructions: Your workup shows pulmonary fibrosis, no blood clot, pneumonia, fluid in your lungs, or other abnormalities were seen. Follow-up closely with your bombsight specialist with your disc and report for additional evaluation and management. Return for any concerning or worsening symptoms including increased difficulty breathing, fever of 100.4 or greater, chest pain, or any other concerning symptoms.
[2017-10-31 01:22] LABS: ABSOLUTE BASOPHILS # (AUTO) 0.2 10^3/uL (0.0-0.2); ABSOLUTE EOSINOPHILS # (AUTO) 0.2 10^3/uL (0.0-0.6); ABSOLUTE LYMPHOCYTES (AUTO) 3.5 10^3/uL (0.5-4.7); ABSOLUTE MONOCYTES (AUTO) 0.6 10^3/uL (0.1-1.4); ABSOLUTE NEUT (AUTO) 4.8 10^3/uL (1.7-8.2); EOSINOPHILS % (AUTO) 2.3 % (0-6); HEMATOCRIT 35.9 % (36.0-47.0); HEMOGLOBIN 12.1 g/dL (12.0-15.5); LYMPHOCYTES % (AUTO) 37.5 % (13-45); MEAN CORPUSCULAR HEMOGLOBIN 31.1 pg (27.0-33.4); MEAN CORPUSCULAR HGB CONC 33.8 g/dL (32.0-36.0); MEAN CORPUSCULAR VOLUME 92 fl (80-97); MONOCYTES % (AUTO) 6.2 % (3-13); PLATELET COUNT 397 10^3/uL (150-450); RED BLOOD COUNT 3.91 10^6/uL (3.72-5.28); RED CELL DISTRIBUTION WIDTH 13.1 % (11.5-14.0); TOTAL CELLS COUNTED % (AUTO) 100 %; WHITE BLOOD COUNT 9.2 10^3/uL (4.0-10.5)
[2017-10-31 01:48] LABS: ANION GAP 8 (5-19); BLOOD UREA NITROGEN 21 mg/dL (7-20); CALCIUM 9.6 mg/dL (8.4-10.2); CARBON DIOXIDE 30 mmol/L (22-30); CHLORIDE 105 mmol/L (98-107); CREATINE KINASE 76 U/L (30-135); GLUCOSE 97 mg/dL (75-110); SODIUM 142.8 mmol/L (137-145)
[2017-10-31 02:02] LABS: NT PRO BNP < 11 pg/mL (5-900); TROPONIN I < 0.012 ng/mL
[2017-10-31 02:06] VITALS: BP 110/77
--- NOTE | 2017-10-31 03:08 | RADIOLOGY REPORT (SQ) ---
EXAM DESCRIPTION: CTA CHEST CLINICAL HISTORY: 52 years Female, worsening dyspnea COMPARISON: 01/07/2017. CR, 10/30/2016. TECHNIQUE: 73 mL Isovue-370 IV contrast. IV contrast. Multiplanar reformat. This exam was performed according to our departmental dose-optimization program, which includes automated exposure control, adjustment of the mA and/or kV according to patient size and/or use of iterative reconstruction technique. FINDINGS: No acute cardiopulmonary findings. No pulmonary embolus. No right ventricular strain. Mild bronchiectasis, moderate honeycombing of the right lower lobe and minimally of the peripheral left lung. Mild scattered atelectasis, scar, and/or fibrosis. Cholecystectomy clips. Inferior neck, axillae, mediastinum, lymphatics, heart, vasculature, upper abdomen, and musculoskeleton appear otherwise unremarkable. IMPRESSION: 1. No acute cardiopulmonary findings. No pulmonary embolus. 2. Mild chronic pulmonary fibrosis pattern without significant interval change.
== END 2017-10-31 03:35 | disposition home or self-care (01) ==
LOC: ER 19:58
DX: R06.02 Shortness of breath (principal); E78.00 Pure hypercholesterolemia, unspecified; I10 Essential (primary) hypertension; Z86.73 Personal history of transient ischemic attack (TIA), and cerebral infarction without residual deficits; Z88.6 Allergy status to analgesic agent; Z90.49 Acquired absence of other specified parts of digestive tract; Z90.710 Acquired absence of both cervix and uterus; Z98.1 Arthrodesis status
CPT/HCPCS: 36415; 71046; 71275; 80048; 82550; 83880; 84484; 85025; 93005; 93010; 99285

== ENCOUNTER → 2018-03-08 | Outpatient (CLI) | payer MEDICARE ==
--- NOTE | 2018-03-08 16:41 | WOMENS IMAGING REPORT ---
EXAM DESCRIPTION: 3D SCREENING MAMMO BILAT COMPLETED DATE/TIME: 03/08/2018 2:50 pm REASON FOR STUDY: SCREENING MAMMO Z12.31 ENCNTR SCREEN MAMMOGRAM FOR MALIGNANT NEOPLASM OF CORTEZ COMPARISON: [id number] TECHNIQUE: Standard craniocaudal and mediolateral oblique views of each breast recorded using digita l acquisition and breast tomosynthesis. LIMITATIONS: None. FINDINGS: No masses, calcifications or architectural distortion. No areas of suspicion. Read with the assistance of CAD. .[facility] - R2 [employer] Version 1.3 .[facility] - R2 Cenova Version 1.3 .[facility] - R2 Cenova Version 2.4 .[facility] [place] - R2 Cenova Version 2.4 .[facility] - R2 [employer] Version 9.2 IMPRESSION: NORMAL MAMMOGRAM. BIRADS 1. BREAST DENSITY: b. There are scattered areas of fibroglandular density. BIRAD: 1 NEGATIVE RECOMMENDATION: ROUTINE SCREENING COMMENT: The patient has been notified of the results by letter per SA requirements. Additional no tification policies are in place for contacting patient with suspicious or incomplete findings. Quality ID #225: The [employer] recommends an annual screening mammogram for women aged 40 years or over. This facility utilizes a reminder system to ensure that all patients receive reminder letters, and/or direct phone calls for appointments. This includes reminders for routine scr eening mammograms, diagnostic mammograms, or other Breast Imaging Interventions when appropriate. Th is patient will be placed in the appropriate reminder system. The [employer] (ACR) has developed recommendations for screening MRI of the breast s in certain patient populations, to be used in conjunction with mammography. Breast MRI surveillanc e may be appropriate for women with more than 20% lifetime risk of developing breast cancer as deter mined by genetic testing, significant family history of the disease, or history of mantle radiation f or Hodgkins Disease. ACR Practice Guidelines 2008. DBT Technology DBT is a type of tomographic mammography. With conventional mammography, overlapping breast tissue ma y make lesions difficult to detect, even with good compression. DBT uses an x-ray tube that rotates a round the breast, taking images at different angles. These images are then combined to create thin sl ices of the breast that the radiologist can view as a 3D reconstruction. The [employer] unit can perform full-field digital mammograms (2D imaging); or DBT (3D imaging); or both, in a combination mode that quickly performs both the mammogram and the tomosynthesis scan while the breast is still compressed. PQRS 6045F: Fluoroscopic imaging is not utilized for breast tomosynthesis. TECHNICAL DOCUMENTATION: FINDING NUMBER: (1) ASSESSMENT: (1) JOB ID: [id number] [employer]- All Rights Reserved Reading location - IP/workstation name: [email or web address]
== END ==
LOC: WI 14:21
PROVIDERS: ATTEND Internal Medicine
DX: Z12.31 Encounter for screening mammogram for malignant neoplasm of breast (principal)
CPT/HCPCS: 77063; 77067

== ENCOUNTER → 2018-10-18 | Outpatient (CLI) | payer MEDICARE, MEDICAID ==
--- NOTE | 2018-10-18 17:02 | RADIOLOGY REPORT (SQ) ---
EXAM DESCRIPTION: CHEST PA/LATERAL COMPLETED DATE/TIME: 10/18/2018 4:47 pm REASON FOR STUDY: COUGH COMPARISON: 10/30/2017 EXAM PARAMETERS: NUMBER OF VIEWS: two views TECHNIQUE: Digital Frontal and Lateral radiographic views of the chest acquired. RADIATION DOSE: NA LIMITATIONS: none FINDINGS: LUNGS AND PLEURA: There is scarring in the right base. No consolidation or effusions. No pneumothorax. MEDIASTINUM AND HILAR STRUCTURES: No masses or contour abnormalities. HEART AND VASCULAR STRUCTURES: Heart normal size. No evidence for failure. BONES: No acute findings. HARDWARE: None in the chest. OTHER: No other significant finding. IMPRESSION: NO SIGNIFICANT RADIOGRAPHIC FINDING IN THE CHEST. TECHNICAL DOCUMENTATION: JOB ID: [id number] [employer]- All Rights Reserved Reading location - IP/workstation name: [email or web address]
== END ==
LOC: OD 16:31
PROVIDERS: ATTEND Nurse Practitioner Acute Care
DX: R05 Cough (principal)
CPT/HCPCS: 71046

== ENCOUNTER → 2019-02-20 | Outpatient (CLI) | payer MEDICARE ==
--- NOTE | 2019-02-20 11:24 | WOMENS IMAGING REPORT ---
EXAM DESCRIPTION: 3D SCREENING MAMMO BILAT COMPLETED DATE/TIME: 02/20/2019 10:15 am REASON FOR STUDY: Z12.31 ROUTINE 3D BILATERAL SCREENING Z12.31 ENCNTR SCREEN MAMMOGRAM FOR MALIGNAN T NEOPLASM OF CORTEZ COMPARISON: [id number] EXAM PARAMETERS: Views: Standard craniocaudal and mediolateral oblique views of each breast recorded using digital acquisition and breast tomosynthesis. Read with the assistance of CAD. .[facility] - [employer] Version 9.2 LIMITATIONS: None. FINDINGS: No suspicious masses, suspicious calcifications or architectural distortion. No areas of c oncern. IMPRESSION: Assessment: Negative MAMMOGRAM. BIRADS 1. BREAST DENSITY: b. There are scattered areas of fibroglandular density. BIRAD: 1 NEGATIVE RECOMMENDATION: ROUTINE SCREENING COMMENT: The patient has been notified of the results by letter per MQSA requirements. Additional no tification policies are in place for contacting patient with suspicious or incomplete findings. Quality ID #225: The [place] [employer] recommends an annual screening mammogram for women aged 40 years or over. This facility utilizes a reminder system to ensure that all patients receive reminder letters, and/or direct phone calls for appointments. This includes reminders for routine scr eening mammograms, diagnostic mammograms, or other Breast Imaging Interventions when appropriate. Th is patient will be placed in the appropriate reminder system. TECHNICAL DOCUMENTATION: FINDING NUMBER: (1) ASSESSMENT: (1) JOB ID: [id number] [employer]- All Rights Reserved Reading location - IP/workstation name: [email or web address]
== END ==
LOC: WI 08:49
PROVIDERS: ATTEND Internal Medicine
DX: Z12.31 Encounter for screening mammogram for malignant neoplasm of breast (principal)
CPT/HCPCS: 77063; 77067

== ENCOUNTER 2020-01-03 15:12 | Observation (INO) | payer MEDICARE, MEDICAID ==
[2020-01-03 17:10] LABS: APPEARANCE,URINE SLIGHTLY-CLOUDY; BILIRUBIN,URINE NEGATIVE (NEGATIVE); COLOR,URINE YELLOW; GLUCOSE, URINE NEGATIVE (NEGATIVE); KETONES,URINE NEGATIVE (NEGATIVE); LEUKOCYTE ESTERASE,URINE NEGATIVE (NEGATIVE); NITRITE,URINE NEGATIVE (NEGATIVE); PROTEIN,URINE NEGATIVE (NEGATIVE); URINE SPECIFIC GRAVITY 1.019; UROBILINOGEN,URINE NEGATIVE mg/dL (<2.0)
[2020-01-03 17:19] LABS: URINE AMPHETAMINES SCREEN NEGATIVE; URINE BARBITURATES SCREEN NEGATIVE; URINE BENZODIAZEPINES SCREEN NEGATIVE; URINE COCAINE SCREEN NEGATIVE; URINE MARIJUANA (THC) SCREEN NEGATIVE; URINE METHADONE SCREEN NEGATIVE; URINE PHENCYCLIDINE SCREEN NEGATIVE
[2020-01-03 17:50] LABS: ABSOLUTE BASOPHILS # (AUTO) 0.1 10^3/uL (0.0-0.2); ABSOLUTE EOSINOPHILS # (AUTO) 0.3 10^3/uL (0.0-0.6); ABSOLUTE LYMPHOCYTES (AUTO) 3.3 10^3/uL (0.5-4.7); ABSOLUTE MONOCYTES (AUTO) 0.2 10^3/uL (0.1-1.4); ABSOLUTE NEUT (AUTO) 3.8 10^3/uL (1.7-8.2); BASOPHILS % (AUTO) 1.5 % (0-2); EOSINOPHILS % (AUTO) 3.6 % (0-6); HEMATOCRIT 36.7 % (36.0-47.0); HEMOGLOBIN 12.7 g/dL (12.0-15.5); LYMPHOCYTES % (AUTO) 42.1 % (13-45); MEAN CORPUSCULAR HEMOGLOBIN 31.2 pg (27.0-33.4); MEAN CORPUSCULAR HGB CONC 34.7 g/dL (32.0-36.0); MEAN CORPUSCULAR VOLUME 90 fl (80-97); MONOCYTES % (AUTO) 3.2 % (3-13); PLATELET COUNT 399 10^3/uL (150-450); RED BLOOD COUNT 4.08 10^6/uL (3.72-5.28); RED CELL DISTRIBUTION WIDTH 13.8 % (11.5-14.0); SEGMENTED NEUTROPHILS % (AUTO) 49.6 % (42-78); TOTAL CELLS COUNTED % (AUTO) 100 %; WHITE BLOOD COUNT 7.7 10^3/uL (4.0-10.5)
[2020-01-03 17:54] LABS: INTERNATIONAL RATION (INR) 1.03; PARTIAL THROMBOPLASTIN TIME 31.1 SEC (23.5-35.8); PROTHROMBIN TIME 13.5 SEC (11.4-15.4)
[2020-01-03] MEDS: ENOXAPARIN SODIUM INJ 40 MG/0.4 ML DISP.SYRIN SUBCUT SCH (18:05)
[2020-01-03 18:11] LABS: PHOSPHORUS 4.5 mg/dL (2.5-4.5)
[2020-01-03 19:08] LABS: ANION GAP 11 (5-19); BLOOD UREA NITROGEN 16 mg/dL (7-20); CALCIUM 9.6 mg/dL (8.4-10.2); CARBON DIOXIDE 25 mmol/L (22-30); CHLORIDE 102 mmol/L (98-107); GLUCOSE 120 mg/dL (75-110); POTASSIUM 4.1 mmol/L (3.6-5.0)
[2020-01-03 19:14] LABS: CREATINE KINASE MB 0.95 ng/mL (<4.55)
[2020-01-03 19:16] LABS: TROPONIN I < 0.012 ng/mL
[2020-01-03] MEDS: PANTOPRAZOLE SODIUM 40 MG TABLET.DR PO SCH (20:00)
--- NOTE | 2020-01-03 20:45 | PDOC H&P ---
History of Present Illness Admission Date/PCP: 01/03/20 15:12 ALEXIS EDWARD MD History of Present Illness: RIMMA JESUS is a 54 year old female She came to the office today for evaluation of shortness of breath tachycardia, she has a history of bronchiectasis respiratory failure requiring mechanical ventilation, she was particularly apprehensive she stated that the last time she was intubated On mechanical ventilation the symptoms started in the same fashion In the office she was evaluated she was found to have increased pulse rate of 136 bpm the twelve-lead EKG was done in the office it confirmed Sinus tachycardia.CT angiogram of the chest was obtained there was no pulmonary embolus there was no focal pneumonia she has chronic fibrotic disease of the lung Past Medical History Cardiac Medical History: Reports: Hyperlipidema, Hypertension - on meds Pulmonary Medical History: Reports: Asthma - last attack 09/23, Chronic Obstructive Pulmonary Disease (COPD) - on meds, Intubation, Pneumonia - hx of GI Medical History: Reports: Gastroesophageal Reflux Disease Musculoskeltal Medical History: Reports: Arthritis Hematology: Denies: Anemia Past Surgical History Past Surgical History: Reports: Section, Cholecystectomy, Hysterectomy, Orthopedic Surgery - neck fusion, Tonsillectomy Social History Smoking Status: Never Smoker Frequency of Alcohol Use: Social Hx Recreational Drug Use: No Drugs: None Hx Prescription Drug Abuse: No Family History Family History: Arthritis, CAD, CVA, DM, Hyperlipidemia, Hypertension, Malignancy, Thyroid Disfunction Parental Family History Reviewed: Yes Children Family History Reviewed: Yes Sibling(s) Family History Reviewed.: Yes Medication/Allergy Home Medications: Zolpidem Tartrate [Ambien 5 mg Tablet] 5 mg PO HSP PRN 06/29/17 Cyclosporine 0.05% Oph Emulsio [Restasis 0.05% Oph Emulsion Pf 0.4 ml] 1 drop OU BID 01/03/20 Ondansetron [Zofran Odt 4 mg Tablet] 4 mg PO BIDP PRN 01/03/20 Pantoprazole Sodium [Protonix [address] Tablet] 40 mg PO DAILY 01/03/20 Allergies/Adverse Reactions: oxycodone HCl [From Percocet] Allergy (Severe, Verified 12/18/17 13:13) n and v Review of Systems Constitutional: ABSENT: chills, fever(s), headache(s), weight gain, weight loss Eyes: ABSENT: visual disturbances Ears: ABSENT: hearing changes Cardiovascular: PRESENT: palpitations. ABSENT: chest pain, dyspnea on exertion, edema, orthropnea Respiratory: PRESENT: cough, dyspnea. ABSENT: hemoptysis Gastrointestinal: ABSENT: abdominal pain, constipation, diarrhea, hematemesis, hematochezia, nausea, vomiting Genitourinary: ABSENT: dysuria, hematuria Musculoskeletal: ABSENT: joint swelling Integumentary: ABSENT: rash, wounds Neurological: ABSENT: abnormal gait, abnormal speech, confusion, dizziness, focal weakness, syncope Psychiatric: ABSENT: anxiety, depression, homidical ideation, suicidal ideation Endocrine: ABSENT: cold intolerance, heat intolerance, menstrual abnormalities, polydipsia, polyuria Hematologic/Lymphatic: ABSENT: easy bleeding, easy bruising, lymphadenopathy Physical Exam Vital Signs: Temp Pulse Resp BP Pulse Ox 97.7 F 95 16 123/80 100 01/03/20 20:00 01/03/20 20:00 01/03/20 20:00 01/03/20 20:00 01/03/20 20:00 Intake & Output 01/02/20 01/03/20 01/04/20 06:59 06:59 06:59 Intake Total 510 Balance 510 Weight 89.7 kg General appearance: PRESENT: no acute distress, well-developed, well-nourished Head exam: PRESENT: atraumatic, normocephalic Eye exam: PRESENT: conjunctiva pink, EOMI, PERRLA. ABSENT: scleral icterus Ear exam: PRESENT: normal external ear exam Mouth exam: PRESENT: moist, tongue midline Neck exam: PRESENT: full ROM Respiratory exam: PRESENT: rhonchi Cardiovascular exam: PRESENT: RRR, +S1, +S2 Pulses: PRESENT: normal dorsalis pedis pul, +2 pedal pulses bilateral Vascular exam: PRESENT: normal capillary refill GI/Abdominal exam: PRESENT: normal bowel sounds, soft Rectal exam: PRESENT: deferred Neurological exam: PRESENT: alert, awake, oriented to person, oriented to place, oriented to time, oriented to situation, CN II-XII grossly intact Psychiatric exam: PRESENT: appropriate affect, normal mood Skin exam: PRESENT: dry, intact, warm Results Laboratory Results: 01/03/20 17:07 01/03/20 18:31 01/03/20 01/03/20 01/03/20 16:30 17:07 17:07 WBC 7.7 RBC 4.08 Hgb 12.7 Hct 36.7 MCV 90 MCH 31.2 MCHC 34.7 RDW 13.8 Plt Count 399 Seg Neutrophils % 49.6 Sodium Potassium Chloride Carbon Dioxide Anion Gap BUN Creatinine Est GFR ( Amer) Glucose Calcium Phosphorus 4.5 Magnesium 2.0 Ammonia Amylase 142 H Lipase 340.1 H Urine Color YELLOW Urine Appearance SLIGHTLY-CLOUDY Urine pH 5.0 Ur Specific [place] 1.019 Urine Protein NEGATIVE Urine Glucose (UA) NEGATIVE Urine Ketones NEGATIVE Urine Blood SMALL H Urine Nitrite NEGATIVE Ur Leukocyte Esterase NEGATIVE Urine WBC (Auto) 6 Urine RBC (Auto) 2 01/03/20 01/03/20 18:31 18:31 WBC RBC Hgb Hct MCV MCH MCHC RDW Plt Count Seg Neutrophils % Sodium 137.5 Potassium 4.1 Chloride 102 Carbon Dioxide 25 Anion Gap 11 BUN 16 Creatinine 0.83 Est GFR ( Amer) > 60 Glucose 120 H Calcium 9.6 Phosphorus Magnesium Ammonia 9.5 Amylase Lipase Urine Color Urine Appearance Urine pH Ur Specific [place] Urine Protein Urine Glucose (UA) Urine Ketones Urine Blood Urine Nitrite Ur Leukocyte Esterase Urine WBC (Auto) Urine RBC (Auto) 01/03/20 01/03/20 01/03/20 17:07 17:07 18:31 Creatine Kinase 110 CK-MB (CK-2) 0.95 Troponin I < 0.012 NT-Pro-B Natriuret Pep < 11 Assessment & Plan - Diagnosis (1) Acute bronchitis Qualifiers: Bronchitis organism: unspecified organism Qualified Code(s): J20.9 - Acute bronchitis, unspecified Is this a current diagnosis for this admission?: Yes Plan: She probably has acute bronchitis she has a background of chronic interstitial lung disease, she is admitted for observation for stabilization (2) Chronic interstitial lung disease Is this a current diagnosis for this admission?: Yes
[2020-01-03] MEDS: LEVOFLOXACIN 750 MG/D5W RTU 750 MG/150 ML RTUPB IV SCH (20:54)
[2020-01-03] MEDS ORDERED: CEFEPIME HCL 2 GM in DEXTROSE 5%-WATER 50 ML IV SCH (22:00)
[2020-01-03 22:44] LABS: CREATINE KINASE MB 1.13 ng/mL (<4.55); TROPONIN I < 0.012 ng/mL
[2020-01-03] MEDS: CYCLOSPORINE 0.05% OPH EMULSIO 0.4 ML DROPERETTE OU SCH (22:53)
[2020-01-03] MEDS: ONDANSETRON 4 MG TAB.RAPDIS PO PRN (23:41)
[2020-01-03] MEDS: ZOLPIDEM TARTRATE 5 MG TABLET PO PRN (23:41)
--- NOTE | 2020-01-03 23:57 | RADIOLOGY REPORT (SQ) ---
CLINICAL INDICATION: SUSPECT PE. Dyspnea. TECHNIQUE: CT arteriography was obtained of the chest with multiplanar MIP and/or 3-D angiographic reconstructions. This exam was performed according to our departmental dose-optimization program, which includes automated exposure control, adjustment of the mA and/or kV according to patient size and/or use of iterative reconstruction techniques. COMPARISON: October 31, 2017. CORRELATION: None. FINDINGS: Adequate contrast bolus. Average Hounsfield unit measurement within main pulmonary artery segment of 420. Artifact from venous opacification. There is no evidence of pulmonary embolus. Thoracic aorta is of normal caliber. The heart is of normal size. No pericardial effusion. No bulky mediastinal adenopathy. The lungs show chronic changes. Fibrotic changes. These are similar to prior. No consolidation or edema. No effusion or pneumothorax. Visualized abdominal contents are unremarkable. Visualized bones are unremarkable. IMPRESSION: No evidence of pulmonary was. Chronic parenchymal lung change, no adverse change.
[2020-01-04 06:56] LABS: CHOLESTEROL 236.14 mg/dL (0-200); TRIGLYCERIDES 132 mg/dL (<150)
[2020-01-04 07:06] LABS: DIRECT LDL 155 mg/dL (<100)
[2020-01-04 07:07] LABS: CREATINE KINASE MB 1.25 ng/mL (<4.55)
[2020-01-04 07:11] LABS: TROPONIN I < 0.012 ng/mL
--- NOTE | 2020-01-04 08:31 | EKG REPORT ---
SEVERITY:- ABNORMAL ECG - SINUS RHYTHM LEFT ATRIAL ABNORMALITY : Confirmed by: Lupillo Bang MD 04-Jan-2020 08:31:12
[2020-01-04] MEDS: NORMAL SALINE 1000 ML 1,000 ML IV PRN ×2 (09:20→22:31)
[2020-01-04] MEDS: CYCLOSPORINE 0.05% OPH EMULSIO 0.4 ML DROPERETTE OU SCH ×2 (09:21→21:27)
[2020-01-04] MEDS: PANTOPRAZOLE SODIUM 40 MG TABLET.DR PO SCH (09:21)
[2020-01-04] MEDS: ENOXAPARIN SODIUM INJ 40 MG/0.4 ML DISP.SYRIN SUBCUT SCH (09:22)
[2020-01-04] MEDS: LEVOFLOXACIN 750 MG/D5W RTU 750 MG/150 ML RTUPB IV SCH (17:35)
[2020-01-04] MEDS: ONDANSETRON 4 MG TAB.RAPDIS PO PRN (18:53)
[2020-01-04] MEDS: ZOLPIDEM TARTRATE 5 MG TABLET PO PRN (22:30)
[2020-01-05] MEDS ORDERED: PANTOPRAZOLE SODIUM 40 MG TABLET.DR PO SCH (06:00)
[2020-01-05] MEDS: NORMAL SALINE 1000 ML 1,000 ML IV PRN (09:19)
[2020-01-05] MEDS: ENOXAPARIN SODIUM INJ 40 MG/0.4 ML DISP.SYRIN SUBCUT SCH (09:20)
[2020-01-05] MEDS: CYCLOSPORINE 0.05% OPH EMULSIO 0.4 ML DROPERETTE OU SCH (09:20)
[2020-01-05 15:40] VITALS: BP 150/90
[2020-01-05 15:53] LABS: FREE T4 (FREE THYROXINE) 1.27 ng/dL (0.78-2.19)
[2020-01-05] MEDS ORDERED: METOPROLOL SUCCINATE 50 MG TAB.SR.24H PO SCH (16:00)
[2020-01-05 16:07] LABS: THYROID STIMULATING HORMONE 2.73 uIU/mL (0.47-4.68)
--- NOTE | 2020-01-05 17:12 | PDOC DISCHARGE SUMMARY ---
Impression - Admit/DC Date/PCP Admission Date/Primary Care Provider: 01/03/20 15:12 ALEXIS EDWARD MD Discharge Date: 01/05/20 - Discharge Diagnosis (1) Acute bronchitis Is this a current diagnosis for this admission?: Yes (2) Chronic interstitial lung disease Is this a current diagnosis for this admission?: Yes - Additional Information Discharge Activity: Activity As Tolerated Referrals: ALEXIS EDWARD MD [Primary Care Provider] - 01/12/20 9:30 am Prescriptions: Metoprolol Succinate [Toprol Xl 50 mg Tab.sr] 50 mg PO DAILY #90 tab.sr.24h Home Medications: Zolpidem Tartrate [Ambien 5 mg Tablet] 5 mg PO HSP PRN 06/29/17 Cyclosporine 0.05% Oph Emulsio [Restasis 0.05% Oph Emulsion Pf 0.4 ml] 1 drop OU BID 01/03/20 Ondansetron [Zofran Odt 4 mg Tablet] 4 mg PO BIDP PRN 01/03/20 Pantoprazole Sodium [Protonix [address] Tablet] 40 mg PO DAILY 01/03/20 Metoprolol Succinate [Toprol Xl 50 mg Tab.sr] 50 mg PO DAILY #90 tab.sr.24h 01/05/20 History of Present Illiness History of Present Illness: RIMMA JESUS is a 54 year old female She came to the office today for evaluation of shortness of breath tachycardia, she has a history of bronchiectasis respiratory failure requiring mechanical ventilation, she was particularly apprehensive she stated that the last time she was intubated On mechanical ventilation the symptoms started in the same fashion In the office she was evaluated she was found to have increased pulse rate of 136 bpm the twelve-lead EKG was done in the office it confirmed Sinus tachycardia.CT angiogram of the chest was obtained there was no pulmonary embolus there was no focal pneumonia she has chronic fibrotic disease of the lung Hospital Course Hospital Course: Patient was admitted for the management of unexplained tachycardia, she has a history of interstitial lung disease, she was admitted directly from the office into the hospital the intent was to bypass the ED because of the coronavirus pandemic. CTA of the chest was done there was no acute pulmonary disease, it demonstrated chronic interstitial lung disease. The hemogram was normal, the comprehensive metabolic panel was normal, she was initially treated empirically with IV antibiotic but subsequently did not see any evidence of infection. Thyroid function tests ordered result is pending as of the time of dictation.She was admitted for observation she also was discharged on beta-ritu she has no fever she has no shortness of breath she has mild cough she could have bronchitis Physical Exam Vital Signs: Temp Pulse Resp BP Pulse Ox 98.1 F 86 16 150/90 H 99 01/05/20 16:36 01/05/20 16:36 01/05/20 16:36 01/05/20 16:36 01/05/20 16:36 Intake & Output 01/04/20 01/05/20 01/06/20 06:59 06:59 06:59 Intake Total 970 2458 1440 Output Total 700 4 Balance 270 2454 1440 Weight 89.5 kg 90.6 kg General appearance: PRESENT: no acute distress Eye exam: PRESENT: PERRLA Respiratory exam: PRESENT: clear to auscultation samanta Cardiovascular exam: PRESENT: +S1, +S2 GI/Abdominal exam: PRESENT: rigid, soft Neurological exam: PRESENT: alert, CN II-XII grossly intact Results Laboratory Results: WBC 7.7 10^3/uL (4.0-10.5) 01/03/20 17:07 RBC 4.08 10^6/uL (3.72-5.28) 01/03/20 17:07 Hgb 12.7 g/dL (12.0-15.5) 01/03/20 17:07 Hct 36.7 % (36.0-47.0) 01/03/20 17:07 MCV 90 fl (80-97) 01/03/20 17:07 MCH 31.2 pg (27.0-33.4) 01/03/20 17:07 MCHC 34.7 g/dL (32.0-36.0) 01/03/20 17:07 RDW 13.8 % (11.5-14.0) 01/03/20 17:07 Plt Count 399 10^3/uL (150-450) 01/03/20 17:07 Lymph % (Auto) 42.1 % (13-45) 01/03/20 17:07 [place] % (Auto) 3.2 % (3-13) 01/03/20 17:07 Eos % (Auto) 3.6 % (0-6) 01/03/20 17:07 Baso % (Auto) 1.5 % (0-2) 01/03/20 17:07 Absolute Neuts (auto) 3.8 10^3/uL (1.7-8.2) 01/03/20 17:07 Absolute Lymphs (auto) 3.3 10^3/uL (0.5-4.7) 01/03/20 17:07 Absolute Monos (auto) 0.2 10^3/uL (0.1-1.4) 01/03/20 17:07 Absolute Eos (auto) 0.3 10^3/uL (0.0-0.6) 01/03/20 17:07 Absolute Basos (auto) 0.1 10^3/uL (0.0-0.2) 01/03/20 17:07 Seg Neutrophils % 49.6 % (42-78) 01/03/20 17:07 PT 13.5 SEC (11.4-15.4) 01/03/20 17:07 INR 1.03 01/03/20 17:07 APTT 31.1 SEC (23.5-35.8) 01/03/20 17:07 Sodium 137.5 mmol/L (137-145) 01/03/20 18:31 Potassium 4.1 mmol/L (3.6-5.0) 01/03/20 18:31 Chloride 102 mmol/L (98-107) 01/03/20 18:31 Carbon Dioxide 25 mmol/L (22-30) 01/03/20 18:31 Anion Gap 11 (5-19) 01/03/20 18:31 BUN 16 mg/dL (7-20) 01/03/20 18:31 Creatinine 0.83 mg/dL (0.52-1.25) 01/03/20 18:31 Est GFR ( Amer) > 60 (>60) 01/03/20 18:31 Est GFR (MDRD) Non-Af > 60 (>60) 01/03/20 18:31 Glucose 120 mg/dL (75-110) H 01/03/20 18:31 Hemoglobin A1c % 5.3 % (4.7-6.0) 01/04/20 05:47 Calcium 9.6 mg/dL (8.4-10.2) 01/03/20 18:31 Phosphorus 4.5 mg/dL (2.5-4.5) 01/03/20 17:07 Magnesium 2.0 mg/dL (1.6-2.3) 01/03/20 17:07 Ammonia 9.5 umol/L (9-33) 01/03/20 18:31 Creatine Kinase 110 U/L (30-135) 01/04/20 05:47 CK-MB (CK-2) 1.25 ng/mL (<4.55) 01/04/20 05:47 Troponin I < 0.012 ng/mL 01/04/20 05:47 NT-Pro-B Natriuret Pep < 11 pg/mL (<125) 01/03/20 17:07 Triglycerides 132 mg/dL (<150) 01/04/20 05:47 Cholesterol 236.14 mg/dL (0-200) H 01/04/20 05:47 LDL Cholesterol Direct 155 mg/dL (<100) H 01/04/20 05:47 VLDL Cholesterol 26.0 mg/dL (10-31) 01/04/20 05:47 HDL Cholesterol 42 mg/dL (>40) 01/04/20 05:47 Amylase 142 U/L (30-110) H 01/03/20 17:07 Lipase 340.1 U/L (23-300) H 01/03/20 17:07 TSH 2.73 uIU/mL (0.47-4.68) 01/05/20 05:47 Free T4 1.27 ng/dL (0.78-2.19) 01/05/20 05:47 Urine Color YELLOW 01/03/20 16:30 Urine Appearance SLIGHTLY-CLOUDY 01/03/20 16:30 Urine pH 5.0 (5.0-9.0) 01/03/20 16:30 Ur Specific [place] 1.019 01/03/20 16:30 Urine Protein NEGATIVE mg/dL (NEGATIVE) 01/03/20 16:30 Urine Glucose (UA) NEGATIVE mg/dL (NEGATIVE) 01/03/20 16:30 Urine Ketones NEGATIVE mg/dL (NEGATIVE) 01/03/20 16:30 Urine Blood SMALL (NEGATIVE) H 01/03/20 16:30 Urine Nitrite NEGATIVE (NEGATIVE) 01/03/20 16:30 Urine Bilirubin NEGATIVE (NEGATIVE) 01/03/20 16:30 Urine Urobilinogen NEGATIVE mg/dL (<2.0) 01/03/20 16:30 Ur Leukocyte Esterase NEGATIVE (NEGATIVE) 01/03/20 16:30 Urine WBC (Auto) 6 /HPF 01/03/20 16:30 Urine RBC (Auto) 2 /HPF 01/03/20 16:30 Urine Bacteria (Auto) TRACE /HPF 01/03/20 16:30 Squamous Epi Cells Auto 9 /HPF 01/03/20 16:30 Urine Mucus (Auto) OCC /LPF 01/03/20 16:30 Urine Ascorbic Acid 20 (NEGATIVE) H 01/03/20 16:30 Urine Opiates Screen NEGATIVE 01/03/20 16:30 Urine Methadone Screen NEGATIVE 01/03/20 16:30 Ur Barbiturates Screen NEGATIVE 01/03/20 16:30 Ur Phencyclidine Scrn NEGATIVE 01/03/20 16:30 Ur Amphetamines Screen NEGATIVE 01/03/20 16:30 U Benzodiazepines Scrn NEGATIVE 01/03/20 16:30 Urine Cocaine Screen NEGATIVE 01/03/20 16:30 U Marijuana (THC) Screen NEGATIVE 01/03/20 16:30 01/03/20 01/03/20 01/03/20 17:07 18:31 22:04 CK-MB (CK-2) 0.95 1.13 Troponin I < 0.012 < 0.012 NT-Pro-B Natriuret Pep < 11 01/04/20 05:47 CK-MB (CK-2) 1.25 Troponin I < 0.012 NT-Pro-B Natriuret Pep Impressions: Chest/Abdomen CTA 01/03/20 00:00 IMPRESSION: No evidence of pulmonary was. Chronic parenchymal lung change, no adverse change. Stroke Is this a Stroke Patient?: No Acute Heart Failure - Is this a Heart Failure Patient?: No
== END 2020-01-05 16:50 | disposition home or self-care (01) ==
LOC: INTOOBSV 15:12 → 4N 15:12
PROVIDERS: ADMIT Internal Medicine; ATTEND Internal Medicine
DX: J20.9 Acute bronchitis, unspecified (principal); J84.89 Other specified interstitial pulmonary diseases; I10 Essential (primary) hypertension; R00.0 Tachycardia, unspecified; K21.9 Gastro-esophageal reflux disease without esophagitis; Z79.899 Other long term (current) drug therapy; Z87.01 Personal history of pneumonia (recurrent); Z87.09 Personal history of other diseases of the respiratory system; Z03.89 Encounter for observation for other suspected diseases and conditions ruled out
CPT/HCPCS: 36415 ×3; 87040; 87086; 84439; 82553 ×2; 82140; 82150; 82550 ×2; 83690; 83735; 84100; 84443; 85610; 85730; 80048; 81001; 84484 ×2; 80307; 83036; 80061; 83880; 71275; 93005; 93010; A9270 ×5; J1650 ×3; J0692; J7060; J7030 ×2; J1956 ×2; G0378; J3490; S0119

== ENCOUNTER → 2020-04-17 | Outpatient (CLI) | payer MEDICAID, MEDICARE ==
--- NOTE | 2020-04-17 10:53 | WOMENS IMAGING REPORT ---
EXAM DESCRIPTION: 3D SCREENING MAMMO BILAT IMAGES COMPLETED DATE/TIME: 04/17/2020 9:35 am REASON FOR STUDY: Z12.31 ENCNTR SCREEN MAMMOGRAM FOR MALIGNANT NEOPLASM OF BREAST Z12.31 ENCNTR SCR EEN MAMMOGRAM FOR MALIGNANT NEOPLASM OF [place] COMPARISON: 02/20/2019, 03/08/2018, March 05 27 T EXAM PARAMETERS: Views: Standard craniocaudal and mediolateral oblique views of each breast recorded using digital acquisition and breast tomosynthesis. Read with the assistance of CAD. .[facility] - [employer] Instructor Version 9.2 LIMITATIONS: None. FINDINGS: No suspicious masses, suspicious calcifications or architectural distortion. No areas of c oncern. IMPRESSION: NEGATIVE MAMMOGRAM. BIRADS 1. BREAST DENSITY: b. There are scattered areas of fibroglandular density. BIRAD: ASSESSMENT: 1 NEGATIVE RECOMMENDATION: ROUTINE SCREENING COMMENT: The patient has been notified of the results by letter per MQSA requirements. Additional no tification policies are in place for contacting patient with suspicious or incomplete findings. Quality ID #[id number]: The [employer] recommends an annual screening mammogram for women aged 40 years or over. This facility utilizes a reminder system to ensure that all patients receive reminder letters, and/or direct phone calls for appointments. This includes reminders for routine scr eening mammograms, diagnostic mammograms, or other Breast Imaging Interventions when appropriate. Th is patient will be placed in the appropriate reminder system. TECHNICAL DOCUMENTATION: FINDING NUMBER: (1) ASSESSMENT: (1) JOB ID: [id number] 2010 [employer]- All Rights Reserved Reading location - IP/workstation name: [email or web address]
== END ==
LOC: WI 09:03
PROVIDERS: ATTEND Internal Medicine
DX: Z12.31 Encounter for screening mammogram for malignant neoplasm of breast (principal)
CPT/HCPCS: 77063; 77067